=== PATIENT | male | born 1955 | race Two or more races ===

== ENCOUNTER 2023-11-04 18:20 | Inpatient (IN) | payer MEDICAID, OTHER ==
[~2023-11-04] VITALS: Ht 167.6 cm; Wt 61.4 kg
[2023-11-04] MEDS: cloNIDine HCL 0.1 MG TAB PO ONE (18:41)
[2023-11-04 19:32] LABS: Basophils # (auto) 0.1 10 ^3/uL (0-0.2); Basophils % (auto) 0.8 % (0.0-2.0); Eosinophils # (auto) 0.3 10 ^3/uL (0-0.8); Hemoglobin 10.2 g/dL (13.5-17.5); Lymphocytes # (auto) 1.4 10 ^3/uL (0.4-5.4); Mean Corpuscular Volume 81.1 fL (80.0-100.0)
[2023-11-04 19:34] LABS: Alanine Aminotransferase 13 U/L (7-40); Albumin 3.9 g/dL (3.2-4.8); Alkaline Phosphatase 88 U/L (46-116); Anion Gap 6 (5-15); Aspartate Aminotransferase 15 U/L (13-40); BUN/Creatinine Ratio 14.4 (10.0-20.0); Blood Urea Nitrogen 37 mg/dL (9-23); Calcium 8.7 mg/dL (8.5-10.1); Carbon Dioxide 22 mmol/L (20-30); Chloride 108 mmol/L (98-107); Eosinophils % (auto) 2.9 % (0.0-7.0); Glucose 308 mg/dL (74-106); Lymphocytes % (auto) 15.2 % (10.0-50.0); Mean Corpuscular Hemoglobin 26.6 pg (28.0-32.0); Mean Corpuscular Hgb Conc. 32.8 g/dL (32.0-36.0); Monocytes # (auto) 0.9 10 ^3/uL (0-1.3); Monocytes % (auto) 9.3 % (0.0-12.0); Neutrophils # (auto) 6.6 10 ^3/uL (1.6-8.6); Neutrophils % (auto) 71.8 % (37.0-80.0); Potassium 5.3 mmol/L (3.5-5.1); Red Blood Cells 3.82 10^6/uL (4.5-5.90); Red Cell Distribution Width 17.1 % (11.8-14.3); Sodium 136 mmol/L (136-145); White Blood Cell 9.1 10^3/uL (4.4-10.8)
[2023-11-04 19:35] LABS: Bilirubin, Total 0.2 mg/dL (0.2-1.0); Total Protein 7.1 g/dL (5.7-8.2)
[2023-11-04 19:39] LABS: Lactic Acid w/Reflex 2.3 mmol/L (0.4-2.0)
[2023-11-04 23:40] VITALS: PULSE 61; RESP 14; O2SAT 99
[2023-11-05] MEDS: hydrALAZINE HCL 20 MG/ML VL IV ONE (00:01)
[2023-11-05] MEDS ORDERED: ONDANSETRON HCL 4 MG/2 ML VIAL IV PRN (02:15)
[2023-11-05] MEDS ORDERED: DEXTROSE (50%) 50ML SYRG IV PRN (02:15)
[2023-11-05] MEDS ORDERED: NITROGLYCERIN 0.4 MG SL TAB SL PRN (02:15)
[2023-11-05] MEDS ORDERED: MORPHINE SULFATE INJ 2 MG/ml SYRG IV PRN (02:15)
[2023-11-05] MEDS ORDERED: HYDROcodone-ACET 5/325MG TAB PO PRN (02:15)
[2023-11-05] MEDS ORDERED: ACETAMINOPHEN 325 MG TAB PO PRN (02:15)
[2023-11-05 03:04] LABS: Triglycerides 97 mg/dL (< 150)
[2023-11-05 03:05] LABS: LDL Cholesterol 115 mg/dL (< 100)
[2023-11-05 03:06] LABS: Cholesterol 173 mg/dL (< 200); HDL Cholesterol 36 mg/dL (40-59)
[2023-11-05 05:08] LABS: Basophils # (auto) 0.1 10 ^3/uL (0-0.2); Eosinophils # (auto) 0.2 10 ^3/uL (0-0.8)
[2023-11-05 05:10] LABS: Basophils % (auto) 0.7 % (0.0-2.0); Eosinophils % (auto) 1.9 % (0.0-7.0); Hematocrit 28.2 % (41.0-53.0); Hemoglobin 9.5 g/dL (13.5-17.5); Lymphocytes # (auto) 1.8 10 ^3/uL (0.4-5.4); Lymphocytes % (auto) 18.2 % (10.0-50.0); Mean Corpuscular Hemoglobin 26.6 pg (28.0-32.0); Mean Corpuscular Hgb Conc. 33.6 g/dL (32.0-36.0); Mean Corpuscular Volume 79.3 fL (80.0-100.0); Monocytes # (auto) 0.7 10 ^3/uL (0-1.3); Monocytes % (auto) 7.4 % (0.0-12.0); Neutrophils # (auto) 7.1 10 ^3/uL (1.6-8.6); Neutrophils % (auto) 71.8 % (37.0-80.0); Red Blood Cells 3.56 10^6/uL (4.5-5.90); Red Cell Distribution Width 17.3 % (11.8-14.3); White Blood Cell 9.9 10^3/uL (4.4-10.8)
[2023-11-05 05:16] LABS: Anion Gap 8 (5-15); Carbon Dioxide 20 mmol/L (20-30); Chloride 110 mmol/L (98-107); Potassium 4.9 mmol/L (3.5-5.1); Sodium 138 mmol/L (136-145)
[2023-11-05 05:17] LABS: Calcium 8.6 mg/dL (8.7-10.4)
[2023-11-05] MEDS: hydrALAZINE HCL 20 MG/ML VL IV PRN (05:19)
[2023-11-05 05:22] LABS: BUN/Creatinine Ratio 16.3 (10.0-20.0); Blood Urea Nitrogen 40 mg/dL (9-23); Glucose 137 mg/dL (74-106)
[2023-11-05] MEDS: SOD CHL 0.45% 1,000 ML IV ONE (05:51)
[2023-11-05] MEDS: ACCU-CHEK COMFORT CURVE STRIP VI SCH (06:50)
[2023-11-05] MEDS: InsuLIN REG 1unit/0.01ml Soln (100units/ml) SC SCH (06:56)
[2023-11-05 08:17] VITALS: PULSE 72; RESP 16; O2SAT 97
[2023-11-05] MEDS: ASPirin 81 mg TAB PO SCH (10:16)
[2023-11-05] MEDS: ATORVASTATIN 20 MG TAB PO SCH (10:16)
[2023-11-05] MEDS: HEPARIN SODIUM (PORCINE) 5000 UNITS/ML 1ML VIAL SC SCH (10:17)
[2023-11-05] MEDS: METOPROLOL TARTRATE 25 MG TAB PO SCH (10:18)
[2023-11-05 13:55] LABS: Urine Bacteria None Seen /hpf (None Seen)
[2023-11-05 14:22] LABS: Urine Blood Negative /uL (Negative); Urine Clarity Clear (Clear); Urine Color Colorless (Yellow); Urine Protein, UAD 2+ (Negative); Urine Urobilinogen Normal (Negative); Urine WBC 1 /hpf (0 - 3)
[2023-11-05 14:24] LABS: Amphetamine Screen, Urine Neg (NEGATIVE)
[2023-11-05 14:25] LABS: Barbiturate Scree,Urine Neg (NEGATIVE); Benzodiazephine Screen, Urine Neg (NEGATIVE); Cocaine Screen, Urine Neg (NEGATIVE); Opiate Scree,Urine Neg (NEGATIVE)
[2023-11-05 14:26] LABS: Cannabinoid Screen, Urine Neg (NEGATIVE); Phencyclidine Screen, Urine Neg (NEGATIVE)
[2023-11-05] MEDS: amLODIPine BESYLATE 5 MG TAB PO ONE (16:13)
[2023-11-05 19:27] VITALS: PULSE 79; RESP 16; O2SAT 97
[2023-11-06 05:08] LABS: Chloride 111 mmol/L (98-107); Eosinophils # (auto) 0.3 10 ^3/uL (0-0.8); Eosinophils % (auto) 2.3 % (0.0-7.0); Hemoglobin 10.2 g/dL (13.5-17.5); Lymphocytes # (auto) 1.9 10 ^3/uL (0.4-5.4); Mean Corpuscular Volume 82.9 fL (80.0-100.0); Neutrophils # (auto) 8.7 10 ^3/uL (1.6-8.6); Potassium 5.4 mmol/L (3.5-5.1); Sodium 138 mmol/L (136-145)
[2023-11-06 05:09] LABS: Anion Gap 7 (5-15); Basophils # (auto) 0.1 10 ^3/uL (0-0.2); Basophils % (auto) 1.2 % (0.0-2.0); Calcium 8.9 mg/dL (8.5-10.1); Carbon Dioxide 20 mmol/L (20-30); Lymphocytes % (auto) 16.2 % (10.0-50.0); Mean Corpuscular Hemoglobin 26.4 pg (28.0-32.0); Mean Corpuscular Hgb Conc. 31.9 g/dL (32.0-36.0); Monocytes # (auto) 0.8 10 ^3/uL (0-1.3); Neutrophils % (auto) 73.3 % (37.0-80.0); Red Blood Cells 3.86 10^6/uL (4.5-5.90); Red Cell Distribution Width 18.2 % (11.8-14.3); White Blood Cell 11.9 10^3/uL (4.4-10.8)
[2023-11-06 05:14] LABS: BUN/Creatinine Ratio 15.1 (10.0-20.0); Blood Urea Nitrogen 39 mg/dL (9-23); Glucose 105 mg/dL (74-106); Magnesium 2.2 mg/dL (1.6-2.6)
[2023-11-06] MEDS: SOD CHL 0.45% 1,000 ML IV SCH (06:11)
[2023-11-06] MEDS: SODIUM ZIRCONIUM CYCL 10 GM PAK PO ONE (06:11)
[2023-11-06 06:21] LABS: Urine Bacteria None Seen /hpf (None Seen)
[2023-11-06 06:37] LABS: Protein, Urine 240.6 mg/dL (0.0-11.9)
[2023-11-06 06:38] LABS: Urine Blood Negative /uL (Negative); Urine Clarity Clear (Clear); Urine Color Colorless (Yellow); Urine Protein, UAD 2+ (Negative); Urine Urobilinogen Normal (Negative); Urine WBC 2 /hpf (0 - 3)
[2023-11-06 06:39] LABS: Creatinine, Urine 44.95 mg/dL (30.0-125.0)
[2023-11-06 07:46] VITALS: PULSE 70; RESP 16; O2SAT 96
[2023-11-06] MEDS: amLODIPine BESYLATE 5 MG TAB PO SCH (10:15)
[2023-11-06] MEDS: cloNIDine HCL 0.1 MG TAB PO PRN (11:54)
[2023-11-06] MEDS ORDERED: EMPA1TAB3 PO (16:22)
[2023-11-06] MEDS ORDERED: GLYB5TAB8 PO (16:22)
[2023-11-06] MEDS ORDERED: ENAL1TAB48 PO (16:22)
[2023-11-06] MEDS ORDERED: METF-371 PO (16:22)
[2023-11-06] MEDS ORDERED: HYDR12.55 PO (16:22)
[2023-11-06 23:32] VITALS: BP 182/76; PULSE 66; RESP 18; TEMP 98.3; O2SAT 98
[2023-11-06 23:33] VITALS: BP 201/77; PULSE 63; RESP 18; TEMP 97.9; O2SAT 99
[2023-11-06 23:40] VITALS: PULSE 63; RESP 18; O2SAT 99
[2023-11-07] VITALS (11 sets, daily range): BP systolic 114–186; BP diastolic 57–78; PULSE 62–90; RESP 16–18; TEMP 97.4–98.3; O2SAT 95–99
[2023-11-07 06:25] LABS: Basophils # (auto) 0.1 10 ^3/uL (0-0.2); Basophils % (auto) 0.8 % (0.0-2.0); Eosinophils # (auto) 0.3 10 ^3/uL (0-0.8); Hemoglobin 9.9 g/dL (13.5-17.5); Lymphocytes # (auto) 1.7 10 ^3/uL (0.4-5.4); White Blood Cell 9.4 10^3/uL (4.4-10.8)
[2023-11-07 06:28] LABS: Hematocrit 30.3 % (41.0-53.0); Lymphocytes % (auto) 18.5 % (10.0-50.0); Mean Corpuscular Hemoglobin 26.3 pg (28.0-32.0); Mean Corpuscular Hgb Conc. 32.7 g/dL (32.0-36.0); Mean Corpuscular Volume 80.3 fL (80.0-100.0); Monocytes # (auto) 0.7 10 ^3/uL (0-1.3); Monocytes % (auto) 7.6 % (0.0-12.0); Neutrophils # (auto) 6.6 10 ^3/uL (1.6-8.6); Neutrophils % (auto) 70.1 % (37.0-80.0); Nucleated Red Blood Cells % 0.1 %; Red Blood Cells 3.77 10^6/uL (4.5-5.90); Red Cell Distribution Width 17.5 % (11.8-14.3)
[2023-11-07 06:35] LABS: Calcium 8.8 mg/dL (8.7-10.4); Chloride 109 mmol/L (98-107); Sodium 138 mmol/L (136-145)
[2023-11-07 06:36] LABS: Anion Gap 8 (5-15); Carbon Dioxide 21 mmol/L (20-30)
[2023-11-07 06:41] LABS: Glucose 142 mg/dL (74-106)
[2023-11-07 06:42] LABS: BUN/Creatinine Ratio 15.1 (10.0-20.0); Blood Urea Nitrogen 41 mg/dL (9-23)
[2023-11-07] MEDS: SEVELAMER 800 MG TAB PO SCH (18:00)
[2023-11-08 01:00] VITALS: BP 138/60; PULSE 75; RESP 18; TEMP 98; O2SAT 98
[2023-11-08 05:00] VITALS: BP 151/67; PULSE 68; RESP 18; TEMP 97.8; O2SAT 97
[2023-11-08 07:03] LABS: Basophils # (auto) 0.1 10 ^3/uL (0-0.2); Basophils % (auto) 0.7 % (0.0-2.0); Eosinophils # (auto) 0.1 10 ^3/uL (0-0.8); Eosinophils % (auto) 0.6 % (0.0-7.0); Hematocrit 29.9 % (41.0-53.0); Hemoglobin 9.5 g/dL (13.5-17.5); Lymphocytes # (auto) 1.5 10 ^3/uL (0.4-5.4); Lymphocytes % (auto) 12.1 % (10.0-50.0); Mean Corpuscular Hemoglobin 25.6 pg (28.0-32.0); Mean Corpuscular Hgb Conc. 31.8 g/dL (32.0-36.0); Mean Corpuscular Volume 80.3 fL (80.0-100.0); Monocytes # (auto) 0.8 10 ^3/uL (0-1.3); Monocytes % (auto) 6.7 % (0.0-12.0); Neutrophils % (auto) 79.9 % (37.0-80.0); Red Blood Cells 3.72 10^6/uL (4.5-5.90); Red Cell Distribution Width 17.7 % (11.8-14.3); White Blood Cell 12.6 10^3/uL (4.4-10.8)
[2023-11-08 07:22] LABS: Anion Gap 6 (5-15); Carbon Dioxide 23 mmol/L (20-30); Chloride 110 mmol/L (98-107); Potassium 4.9 mmol/L (3.5-5.1); Sodium 139 mmol/L (136-145)
[2023-11-08 07:23] LABS: Calcium 8.7 mg/dL (8.5-10.1)
[2023-11-08 07:28] LABS: BUN/Creatinine Ratio 15.6 (10.0-20.0); Blood Urea Nitrogen 43 mg/dL (9-23); Glucose 94 mg/dL (74-106)
[2023-11-08 08:00] VITALS: PULSE 72
[2023-11-08 09:00] VITALS: BP 191/80; PULSE 69; RESP 17; TEMP 97.7; O2SAT 97
[2023-11-08 13:00] VITALS: BP 194/85; PULSE 77; RESP 17; TEMP 97.6; O2SAT 98
[2023-11-08] MEDS ORDERED: hydrALAZINE HCL 25 MG TAB PO SCH (14:00)
[2023-11-08] MEDS ORDERED: ASPI-325 PO (15:13)
[2023-11-08] MEDS ORDERED: SEVE800T7 PO (15:13)
[2023-11-08] MEDS ORDERED: ATOR20TA50 PO (15:13)
[2023-11-08] MEDS ORDERED: AML5T PO (15:13)
[2023-11-08] MEDS ORDERED: HYDR25TA87 PO (15:13)
[2023-11-08] MEDS ORDERED: MET25T PO (15:13)
[2023-11-08] MEDS ORDERED: CLON0.1T PO (15:18)
[2023-11-08] MEDS: hydrALAZINE HCL 25 MG TAB PO SCH (15:25)
[2023-11-08 17:21] VITALS: BP 150/71; PULSE 77
== END 2023-11-08 17:21 | disposition home or self-care (01) | DRG 281 ==
LOC: ER 18:20 → TELE 11-05 02:32 → TELE-EAST 11-06 23:05
PROVIDERS: ADMIT Nurse Practitioner Family; ATTEND Nurse Practitioner Family
DX: I16.0 Hypertensive urgency (principal); N17.9 Acute kidney failure, unspecified; I21.A1 Myocardial infarction type 2; N25.81 Secondary hyperparathyroidism of renal origin; N18.4 Chronic kidney disease, stage 4 (severe); E87.5 Hyperkalemia; E11.65 Type 2 diabetes mellitus with hyperglycemia; D63.1 Anemia in chronic kidney disease; E83.39 Other disorders of phosphorus metabolism; I13.10 Hypertensive heart and chronic kidney disease without heart failure, with stage 1 through stage 4 chronic kidney disease, or unspecified chronic kidney disease; E11.22 Type 2 diabetes mellitus with diabetic chronic kidney disease; E11.21 Type 2 diabetes mellitus with diabetic nephropathy
CPT/HCPCS: 36415; 70450; 71045; 76775; 78582; 80048; 80053; 80061; 80307; 81001; 82306; 82570; 82962; 83036; 83605; 83735; 83880; 83970; 84100; 84156; 84300; 84484; 85025; 85379; 87040; 93005; 93306; 93975; G0378; J1815

== ENCOUNTER 2024-10-03 08:08 | Emergency (ER) | payer OTHER ==
[~2024-10-03] VITALS: Ht 165.1 cm; Wt 61.3 kg
[~2024-10-03 08:08] MED LIST: AML5T PO; ASPI-325 PO; ATOR20TA50 PO; CLON0.1T PO; EMPA1TAB3 PO; GLYB5TAB8 PO; HYDR25TA87 PO; MET25T PO; METF-371 PO; SEVE800T7 PO
--- NOTE | 2024-10-03 08:34 | ED.PDOC ---
History of Present Illness HPI Comments 69 y/o M, presents to the ED for CC of abnormal labs. Patient states, that he received a call from his dialysis nurse to follow up with the ED for a further evaluation following dialysis treatment yesterday (10/02/24). Patient reports, that he receives dialysis treatment on M,W,F. No other symptoms of modifying factors present at this time. Chief Complaint: Abnormal LAB's Time Seen by MD: 08:25 Reviewed Notes: Nurses Notes, Medications, Allergies Allergies: Coded Allergies: NO KNOWN ALLERGIES (Unverified , 11/05/23) Home Meds Active Scripts Clonidine Hydrochloride (Clonidine Hcl) 0.1 Mg Tab, 0.1 MG PO Q8HPRN PRN for 30 Days, #90 TAB Prov:SUKUMAR PEDRO MD 11/08/23 Amlodipine Besylate (NORVASC TABLET) 5 Mg Tb, 10 MG PO DAILY, #60 TAB Prov:SUKUMAR PEDRO MD 11/08/23 Sevelamer Hydrochloride (Renagel) 800 Mg Tab, 800 MG PO TIDWM, #90 TAB Prov:SUKUMAR PEDRO MD 11/08/23 Metoprolol Tartrate (Lopressor) 25 Mg Tb, 12.5 MG PO BID for 30 Days, #30 TAB Prov:SUKUMAR PEDRO MD 11/08/23 Hydralazine HCl (Hydralazine HCl) 25 Mg Tab, 50 MG PO Q8HR, #90 TAB Prov:SUKUMAR PEDRO MD 11/08/23 Atorvastatin Calcium (ATORVASTATIN CALCIUM) 20 Mg Tab, 20 MG PO DAILY, #60 TAB Prov:SUKUMAR PEDRO MD 11/08/23 Aspirin (Aspirin Low Dose) 81 Mg Tab, 81 MG PO DAILY for 60 Days, #60 TAB Prov:SUKUMAR PEDRO MD 11/08/23 Reported Medications Metformin Hydrochloride (Metformin Hcl) 850 Mg Tab, 850 MG PO TID, TAB 11/06/23 Glyburide (Glyburide) 5 Mg Tab, 2 TAB PO DAILY, MG 11/06/23 Empagliflozin (Jardiance) 25 Mg Tab, 25 MG PO DAILY, TAB 11/06/23 Information Source: Patient Mode of Arrival: Ambulatory Severity: Moderate Timing: Minutes Duration: Since onset Prehospital treatment: None Past Medical History PAST MEDICAL HISTORY: Denies Surgical History: Denies all surgeries Family History Family History: Unknown Social History Smoker: Non-Smoker Alcohol: Denies ETOH Use Drugs: Denies Drug Use Lives In: Home Constitutional: denies: chills, diaphoresis, fatigue, fever, malaise, sweats, weakness, others EENTM: denies: blurred vision, double vision, ear bleeding, ear discharge, ear drainage, ear pain, ear ringing, eye pain, eye redness, hearing loss, mouth pain, mouth swelling, nasal discharge, nose bleeding, nose congestion, nose pain, photophobia, tearing, throat pain, throat swelling, voice changes, others Respiratory: denies: cough, hemoptysis, orthopnea, SOB at rest, shortness of breath, SOB with excertion, stridor, wheezing, others Cardiovascular: denies: chest pain, dizzy spells, diaphoresis, Dyspnea on exertion, edema, irregular heart beat, left arm pain, lightheadedness, palpitations, PND, syncope, others Gastrointestinal: denies: abdomen distended, abdominal pain, blood streaked bowels, constipated, diarrhea, dysphagia, difficulty swallowing, hematemesis, melena, nausea, poor appetite, poor fluid intake, rectal bleeding, rectal pain, vomiting, others Genitourinary: denies: burning, dysuria, flank pain, frequency, hematuria, incontinence, penile discharge, penile sore, pain, testicle pain, testicle swelling, urgency, others Neurological: denies: dizziness, fainting, headache, left sided numbness, left sided weakness, numbness, paresthesia, pre-existing deficit, right sided numbness, right sided weakness, seizure, speech problems, tingling, tremors, weakness, others Musculoskeletal: denies: back pain, gout, joint pain, joint swelling, muscle pain, muscle stiffness, neck pain, others Integumetry: denies: bruises, change in color, change in hair/nails, dryness, laceration, lesions, lumps, rash, wounds, others Allergic/Immunocompromised: denies: Difficulty Healing, Frequent Infections, Hives, Itching, others Hematologic/Lymphatic: denies: anemia, blood clots, easy bleeding, easy bruising, swollen glands, others Endocrine: denies: excessive hunger, excessive sweating, excessive thirst, excessive urination, flushing, intolerance to cold, intolerance to heat, unexplained weight gain, unexplained weight loss, others Psychiatric: denies: anxiety, bipolar disorder, depression, hopeless, panic disorder, schizophrenia, sleepless, suicidal, others All Other Systems: Reviewed and Negative Physical Exam General Appearance: No Apparent Distress, Normal HEENT: Normal ENT Inspection, Pharynx Normal, TMs Normal Neck: Full Range of Motion, Non-Tender, Normal, Normal Inspection Respiratory: Chest Non-Tender, Lungs Clear, No Accessory Muscle Use, No R espiratory Distress, Normal Breath Sounds Cardiovascular: No Edema, No Murmur, No Gallop, Normal Peripheral Pulses, Regular Rate/Rhythm Breast Exam: Deferred Gastrointestinal: No Organomegaly, Non Tender, No Pulsatile Mass, Normal Bowel Sounds, Soft Genitalia: Deferred Pelvic: Deferred Rectal: Deferred Extremities: No calf tenderness, Normal capillary refill, Normal inspection, Normal range of motion, Non-tender, No pedal edema Musculoskeletal : Apperance: Normal Neurologic: Alert, kelp or seagrass gatherer II-XII nml as Tested, No Motor Deficits, Normal Affect, Normal Mood, No Sensory Deficits Cerebellar Function: Normal Reflexes: Normal Skin: Dry, Normal Color, Warm Lymphatic: No Adenopathy Was a procedure done? Was a procedure done?: No Differential Dx Considerations may include: ELECTROLYTE IMBALANCE X-Ray, Labs, Meds, VS Vital Signs Date Time Temp Pulse Resp B/P (MAP) Pulse Ox O2 Delivery O2 Flow Rate FiO2 10/03/24 15:00 98.2 67 12 157/63 (94) 94 98.2 10/03/24 13:00 59 15 133/78 (96) 91 10/03/24 12:00 60 10/03/24 11:00 62 16 146/65 (92) 92 10/03/24 09:00 64 10 94 Nasal Cannula* 3 32 10/03/24 08:54 98.7 62 13 147/62 (90) 91 98.7 10/03/24 08:22 65 10/03/24 08:15 98.7 66 18 133/50 (77) 96 98.7 Lab Test 10/03/24 13:12 10/03/24 09:28 10/03/24 08:40 10/03/24 08:18 Range/Units POC Glucose 243 H 513 *H 433 *H 70-106 mg/dl White Blood Count 9.0 4.4-10.8 10^3/uL Red Blood Count 4.03 L 4.5-5.90 10^6/uL Hemoglobin 10.7 L 13.5-17.5 g/dL Hematocrit 32.7 L 41.0-53.0 % Mean Corpuscular Volume 81.2 80.0-100.0 fL Mean Corpuscular Hemoglobin 26.6 L 28.0-32.0 pg Mean Corpuscular Hemoglobin Concent 32.7 32.0-36.0 g/dL Red Cell Distribution Width 15.7 H 11.8-14.3 % Platelet Count 284 140-450 10^3/uL Mean Platelet Volume 8.6 6.9-10.8 fL Neutrophils (%) (Auto) 76.0 37.0-80.0 % Lymphocytes (%) (Auto) 11.2 10.0-50.0 % Monocytes (%) (Auto) 8.0 0.0-12.0 % Eosinophils (%) (Auto) 2.7 0.0-7.0 % Basophils (%) (Auto) 2.1 H 0.0-2.0 % Neutrophils # (Auto) 6.8 1.6-8.6 10 ^3/uL Lymphocytes # (Auto) 1.0 0.4-5.4 10 ^3/uL Monocytes # (Auto) 0.7 0-1.3 10 ^3/uL Eosinophils # (Auto) 0.2 0-0.8 10 ^3/uL Basophils # (Auto) 0.2 0-0.2 10 ^3/uL Nucleated Red Blood Cells 0.0 % Sodium Level 134 L 136-145 mmol/L Potassium Level 4.2 3.5-5.1 mmol/L Chloride Level 99 98-107 mmol/L Carbon Dioxide Level 29 20-31 mmol/L Anion Gap 6 5-15 Blood Urea Nitrogen 30 H 9-23 mg/dL Creatinine 3.47 H 0.700-1.30 mg/dL Glomerular Filtration Rate Calc 19 >90 mL/min BUN/Creatinine Ratio 8.6 L 10.0-20.0 Serum Glucose 491 *H 74-106 mg/dL Calcium Level 8.9 8.7-10.4 mg/dL Phosphorus Level 3.2 2.4-5.1 mg/dL Magnesium Level 1.9 1.6-2.6 mg/dL Test 10/03/24 08:16 Range/Units POC Glucose 428 *H 70-106 mg/dl Current Medications Medications (Trade) Dose Ordered Sig/David Route Start Time Stop Time Status Last Admin Insulin Human Regular (InsuLIN R) 10 units ONCE ONCE IV 10/03/24 09:30 10/03/24 09:31 DC 10/03/24 09:32 Time of 1ST Reevaluation: 09:55 Reevaluation 1ST: Unchanged Patient Education/Counseling: Diagnosis, Treatment Family Education/Counseling: No Family Present Departure 1 Departure Time of Disposition: 16:44 (Patient presented with concern for abnormal labs. Patient's labs appear benign however patient is hypoxic on room air to the high 80s. We will admit patient for further workup for hypoxia.) Impression: Primary Impression: Acute respiratory failure with hypoxia Disposition: ADMITTED INPATIENT Admit to: Med Surg Condition: Serious Critical Care Note Critical Care Time?: No Stability Stability form required: No Heart Score Heart Score: Heart Score Response (Comments) Value History N/A 0 EKG N/A 0 Age N/A 0 Risk Factors N/A 0 Troponin N/A 0 Total 0 I personally scribed for YAIR FALLON MD ([email or web address]) on 10/03/24 at 08:33. Electronically submitted by Mitra Rayo [email or web address]). YAIR FALLON MD October 03, 2024 08:33
--- NOTE | 2024-10-03 08:45 | ECG ---
[facility] Test Date: 2024-10-03 Test Time: 08:22:26 Pat Name: GABY BACON Department: ER Room: Gender: M Ent Consultant: ALLAN : 1955 Requested By: YAIR FALLON Order Number: [id number] Reading MD: Taran Villegas Measurements Intervals [place] Rate: 65 P: 268 NC: 132 QRS: 48 QRSD: 90 T: 263 QT: 458 QTc: 477 Interpretive Statements Ectopic atrial rhythm LVH with secondary repolarization abnormality ST depr, consider ischemia, inferior leads Borderline prolonged QT interval Electronically Signed On 10-03-2024 21:08:45 PDT by Taran Villegas Please click the below link to view image of tracing.
[2024-10-03 08:48] LABS: Basophils # (auto) 0.2 10 ^3/uL (0-0.2); Basophils % (auto) 2.1 % (0.0-2.0); Eosinophils # (auto) 0.2 10 ^3/uL (0-0.8); Eosinophils % (auto) 2.7 % (0.0-7.0); Hematocrit 32.7 % (41.0-53.0); Hemoglobin 10.7 g/dL (13.5-17.5); Lymphocytes % (auto) 11.2 % (10.0-50.0); Mean Corpuscular Hemoglobin 26.6 pg (28.0-32.0); Mean Corpuscular Hgb Conc. 32.7 g/dL (32.0-36.0); Mean Corpuscular Volume 81.2 fL (80.0-100.0); Monocytes # (auto) 0.7 10 ^3/uL (0-1.3); Neutrophils # (auto) 6.8 10 ^3/uL (1.6-8.6); Platelet Count (auto) 284 10^3/uL (140-450); Red Blood Cells 4.03 10^6/uL (4.5-5.90); Red Cell Distribution Width 15.7 % (11.8-14.3)
[2024-10-03 08:58] LABS: Chloride 99 mmol/L (98-107); Potassium 4.2 mmol/L (3.5-5.1)
[2024-10-03 08:59] LABS: Anion Gap 6 (5-15); Carbon Dioxide 29 mmol/L (20-31)
[2024-10-03 09:00] VITALS: PULSE 64; RESP 10; O2SAT 94
[2024-10-03 09:00] LABS: Calcium 8.9 mg/dL (8.7-10.4)
[2024-10-03 09:04] LABS: Sodium 134 mmol/L (136-145)
[2024-10-03 09:05] LABS: Blood Urea Nitrogen 30 mg/dL (9-23); Magnesium 1.9 mg/dL (1.6-2.6)
[2024-10-03 09:06] LABS: Phosphorus 3.2 mg/dL (2.4-5.1)
[2024-10-03 09:15] LABS: BUN/Creatinine Ratio 8.6 (10.0-20.0); Glucose 491 mg/dL (74-106)
[2024-10-03] MEDS: InsuLIN REG 1unit/0.01ml Soln (100units/ml) IV ONE (09:32)
--- NOTE | 2024-10-03 10:51 | DVH ---
EXAM: XY CHEST PORTABLE Indication: sob Technique: Single frontal view of the chest was obtained Comparison: XY CHEST PORTABLE on DOS: 11/05/23 FINDINGS: Lines and Tubes: Right tunneled dialysis catheter tip projects over the right atrium. Lungs: No focal consolidation. There is mild pulmonary vascular congestion Pleura: Trace right pleural effusion No pneumothorax. Cardiomediastinal contours: Cardiomegaly. Bones: No acute osseous abnormality. IMPRESSION: Cardiomegaly with mild pulmonary vascular congestion. Trace right pleural effusion.
--- NOTE | 2024-10-03 13:00 | DVHINCON2 ---
Date Seen: October 03, 2024 Family History: Hypertension G8 MOTHER G8 FATHER Allergies: Coded Allergies: NO KNOWN ALLERGIES (Unverified , 11/05/23) Home Meds Active Scripts Clonidine Hydrochloride (Clonidine Hcl) 0.1 Mg Tab, 0.1 MG PO Q8HPRN PRN for 30 Days, #90 TAB Prov:SUKUMAR PEDRO MD 11/08/23 Amlodipine Besylate (NORVASC TABLET) 5 Mg Tb, 10 MG PO DAILY, #60 TAB Prov:SUKUMAR PEDRO MD 11/08/23 Sevelamer Hydrochloride (Renagel) 800 Mg Tab, 800 MG PO TIDWM, #90 TAB Prov:SUKUMAR PEDRO MD 11/08/23 Metoprolol Tartrate (Lopressor) 25 Mg Tb, 12.5 MG PO BID for 30 Days, #30 TAB Prov:SUKUMAR PEDRO MD 11/08/23 Hydralazine HCl (Hydralazine HCl) 25 Mg Tab, 50 MG PO Q8HR, #90 TAB Prov:SUKUMAR PEDRO MD 11/08/23 Atorvastatin Calcium (ATORVASTATIN CALCIUM) 20 Mg Tab, 20 MG PO DAILY, #60 TAB Prov:SUKUMAR PEDRO MD 11/08/23 Aspirin (Aspirin Low Dose) 81 Mg Tab, 81 MG PO DAILY for 60 Days, #60 TAB Prov:SUKUMAR PEDRO MD 11/08/23 Reported Medications Metformin Hydrochloride (Metformin Hcl) 850 Mg Tab, 850 MG PO TID, TAB 11/06/23 Glyburide (Glyburide) 5 Mg Tab, 2 TAB PO DAILY, MG 11/06/23 Empagliflozin (Jardiance) 25 Mg Tab, 25 MG PO DAILY, TAB 11/06/23 Vital Signs Vital Signs Date Time Temp Pulse Resp B/P (MAP) Pulse Ox O2 Delivery O2 Flow Rate FiO2 10/03/24 11:00 62 16 146/65 (92) 92 10/03/24 09:00 Nasal Cannula* 3 32 10/03/24 08:54 98.7 98.7 Labs/Diagnostic Data Labs Test 10/03/24 09:28 10/03/24 08:40 Range/Units POC Glucose 513 *H 70-106 mg/dl White Blood Count 9.0 4.4-10.8 10^3/uL Red Blood Count 4.03 L 4.5-5.90 10^6/uL Hemoglobin 10.7 L 13.5-17.5 g/dL Hematocrit 32.7 L 41.0-53.0 % Mean Corpuscular Volume 81.2 80.0-100.0 fL Mean Corpuscular Hemoglobin 26.6 L 28.0-32.0 pg Mean Corpuscular Hemoglobin Concent 32.7 32.0-36.0 g/dL Red Cell Distribution Width 15.7 H 11.8-14.3 % Platelet Count 284 140-450 10^3/uL Mean Platelet Volume 8.6 6.9-10.8 fL Neutrophils (%) (Auto) 76.0 37.0-80.0 % Lymphocytes (%) (Auto) 11.2 10.0-50.0 % Monocytes (%) (Auto) 8.0 0.0-12.0 % Eosinophils (%) (Auto) 2.7 0.0-7.0 % Basophils (%) (Auto) 2.1 H 0.0-2.0 % Neutrophils # (Auto) 6.8 1.6-8.6 10 ^3/uL Lymphocytes # (Auto) 1.0 0.4-5.4 10 ^3/uL Monocytes # (Auto) 0.7 0-1.3 10 ^3/uL Eosinophils # (Auto) 0.2 0-0.8 10 ^3/uL Basophils # (Auto) 0.2 0-0.2 10 ^3/uL Nucleated Red Blood Cells 0.0 % Sodium Level 134 L 136-145 mmol/L Potassium Level 4.2 3.5-5.1 mmol/L Chloride Level 99 98-107 mmol/L Carbon Dioxide Level 29 20-31 mmol/L Anion Gap 6 5-15 Blood Urea Nitrogen 30 H 9-23 mg/dL Creatinine 3.47 H 0.700-1.30 mg/dL Glomerular Filtration Rate Calc 19 >90 mL/min BUN/Creatinine Ratio 8.6 L 10.0-20.0 Serum Glucose 491 *H 74-106 mg/dL Calcium Level 8.9 8.7-10.4 mg/dL Phosphorus Level 3.2 2.4-5.1 mg/dL Magnesium Level 1.9 1.6-2.6 mg/dL SUKUMAR PEDRO MD October 03, 2024 13:00
[2024-10-03 19:00] VITALS: PULSE 72; RESP 18; O2SAT 95
[2024-10-04] MEDS: cloNIDine HCL 0.1 MG TAB PO ONE (01:18)
[2024-10-04] MEDS: LOSARTAN POTASSIUM 50 MG TAB PO ONE (05:20)
[2024-10-04] MEDS: NIFEdipine 10 MG CAP PO ONE (05:46)
[2024-10-04] MEDS: InsuLIN REG 1unit/0.01ml Soln (100units/ml) SC ONE (06:54)
[2024-10-04 07:40] VITALS: PULSE 62; RESP 12; TEMP 98; O2SAT 93
[2024-10-04 11:00] VITALS: BP 133/65; PULSE 60; RESP 12; O2SAT 93
[2024-10-05] MEDS ORDERED: LOSA-534 PO (06:59)
[2024-10-05] MEDS ORDERED: NIFE10CA52 PO (06:59)
== END 2024-10-04 11:32 | disposition home or self-care (01) ==
LOC: ER 08:08
DX: J96.01 Acute respiratory failure with hypoxia (principal); Z79.82 Long term (current) use of aspirin; Z79.84 Long term (current) use of oral hypoglycemic drugs; Z79.899 Other long term (current) drug therapy
CPT/HCPCS: 36415; 71045; 80048; 82947; 83735; 84100; 85025; 93005; 96374; 99285; J1815; 82962

== ENCOUNTER 2024-10-04 20:56 | Inpatient (IN) | payer OTHER ==
[~2024-10-04] VITALS: Ht 165.1 cm; Wt 62.3 kg
[2024-10-04] MEDS ORDERED: VANCOMYCIN PER PHARMACY 0 MG IV SCH (21:45)
[2024-10-04 22:19] LABS: Basophils # (auto) 0.1 10 ^3/uL (0-0.2); Basophils % (auto) 0.9 % (0.0-2.0); Eosinophils # (auto) 0.2 10 ^3/uL (0-0.8); Eosinophils % (auto) 1.9 % (0.0-7.0); Hematocrit 32.5 % (41.0-53.0); Hemoglobin 10.6 g/dL (13.5-17.5); Lymphocytes # (auto) 1.1 10 ^3/uL (0.4-5.4); Lymphocytes % (auto) 10.8 % (10.0-50.0); Mean Corpuscular Hemoglobin 26.4 pg (28.0-32.0); Mean Corpuscular Hgb Conc. 32.7 g/dL (32.0-36.0); Mean Corpuscular Volume 80.8 fL (80.0-100.0); Monocytes # (auto) 1.2 10 ^3/uL (0-1.3); Monocytes % (auto) 11.4 % (0.0-12.0); Neutrophils # (auto) 7.6 10 ^3/uL (1.6-8.6); Platelet Count (auto) 311 10^3/uL (140-450); Red Blood Cells 4.02 10^6/uL (4.5-5.90); Red Cell Distribution Width 15.7 % (11.8-14.3); White Blood Cell 10.1 10^3/uL (4.4-10.8)
[2024-10-04 22:44] LABS: Albumin 3.9 g/dL (3.2-4.8); Alkaline Phosphatase 93 U/L (46-116); Anion Gap 9 (5-15); Aspartate Aminotransferase 20 U/L (13-40); BUN/Creatinine Ratio 8.3 (10.0-20.0); Carbon Dioxide 29 mmol/L (20-31); Chloride 99 mmol/L (98-107); Potassium 3.5 mmol/L (3.5-5.1); Sodium 137 mmol/L (136-145); Total Protein 6.9 g/dL (5.7-8.2)
[2024-10-04 23:01] LABS: Alanine Aminotransferase < 9 U/L (7-40); Bilirubin, Total < 0.2 mg/dL (0.2-1.0); Blood Urea Nitrogen 24 mg/dL (9-23); Calcium 8.2 mg/dL (8.7-10.4); Glucose 271 mg/dL (74-106); Lipase 73 U/L (12-53)
[2024-10-05] MEDS: SODIUM CHLORIDE 0.9% 1,000 ML IV ONE (00:19)
[2024-10-05] MEDS: cloNIDine HCL 0.1 MG TAB PO ONE (01:03)
--- NOTE | 2024-10-05 01:28 | ED.PDOC ---
History of Present Illness HPI Comments This patient is a pleasant 69-year-old male who arrives to the ED today for evaluation of positive blood culture concerns. Patient suffers from end-stage renal disease and is currently on dialysis. Patient's dialysis center sent him to our location due to concerns of sepsis due to Gram-positive cocci in pairs and clusters noted on blood cultures. Dialysis center of thinks it may be coming from his right-sided chest port. Patient denies any fever nausea or vomiting. Patient was mildly hypertensive on arrival. Chief Complaint: Wound Check Time Seen by MD: 21:04 Primary Care Provider: CLARENCE Reviewed Notes: Nurses Notes Allergies: Coded Allergies: NO KNOWN ALLERGIES (Unverified , 11/05/23) Home Meds Active Scripts Clonidine Hydrochloride (Clonidine Hcl) 0.1 Mg Tab, 0.1 MG PO Q8HPRN PRN for 30 Days, #90 TAB Prov:SUKUMAR PEDRO MD 11/08/23 Amlodipine Besylate (NORVASC TABLET) 5 Mg Tb, 10 MG PO DAILY, #60 TAB Prov:SUKUMAR PEDRO MD 11/08/23 Sevelamer Hydrochloride (Renagel) 800 Mg Tab, 800 MG PO TIDWM, #90 TAB Prov:SUKUMAR PEDRO MD 11/08/23 Metoprolol Tartrate (Lopressor) 25 Mg Tb, 12.5 MG PO BID for 30 Days, #30 TAB Prov:SUKUMAR PEDRO MD 11/08/23 Hydralazine HCl (Hydralazine HCl) 25 Mg Tab, 50 MG PO Q8HR, #90 TAB Prov:SUKUMAR PEDRO MD 11/08/23 Atorvastatin Calcium (ATORVASTATIN CALCIUM) 20 Mg Tab, 20 MG PO DAILY, #60 TAB Prov:SUKUMAR PEDRO MD 11/08/23 Aspirin (Aspirin Low Dose) 81 Mg Tab, 81 MG PO DAILY for 60 Days, #60 TAB Prov:SUKUMAR PEDRO MD 11/08/23 Reported Medications Metformin Hydrochloride (Metformin Hcl) 850 Mg Tab, 850 MG PO TID, TAB 11/06/23 Glyburide (Glyburide) 5 Mg Tab, 2 TAB PO DAILY, MG 11/06/23 Empagliflozin (Jardiance) 25 Mg Tab, 25 MG PO DAILY, TAB 11/06/23 Information Source: Patient Mode of Arrival: Ambulatory Severity: Moderate Timing: Days Duration: Since onset Prehospital treatment: None Past Medical History PAST MEDICAL HISTORY: ESRD, Denies Surgical History: Denies all surgeries Family History Family History: Unknown Social History Smoker: Non-Smoker Alcohol: Denies ETOH Use Drugs: Denies Drug Use Lives In: Home Constitutional: denies: chills, diaphoresis, fatigue, fever, malaise, sweats, weakness, others EENTM: denies: blurred vision, double vision, ear bleeding, ear discharge, ear drainage, ear pain, ear ringing, eye pain, eye redness, hearing loss, mouth pain, mouth swelling, nasal discharge, nose bleeding, nose congestion, nose pain, photophobia, tearing, throat pain, throat swelling, voice changes, others Respiratory: denies: cough, hemoptysis, orthopnea, SOB at rest, shortness of breath, SOB with excertion, stridor, wheezing, others Cardiovascular: denies: chest pain, dizzy spells, diaphoresis, Dyspnea on exertion, edema, irregular heart beat, left arm pain, lightheadedness, palpitations, PND, syncope, others Gastrointestinal: denies: abdomen distended, abdominal pain, blood streaked bowels, constipated, diarrhea, dysphagia, difficulty swallowing, hematemesis, melena, nausea, poor appetite, poor fluid intake, rectal bleeding, rectal pain, vomiting, others Genitourinary: denies: burning, dysuria, flank pain, frequency, hematuria, incontinence, penile discharge, penile sore, pain, testicle pain, testicle swelling, urgency, others Neurological: denies: dizziness, fainting, headache, left sided numbness, left sided weakness, numbness, paresthesia, pre-existing deficit, right sided numbness, right sided weakness, seizure, speech problems, tingling, tremors, weakness, others Musculoskeletal: denies: back pain, gout, joint pain, joint swelling, muscle pain, muscle stiffness, neck pain, others Integumetry: denies: bruises, change in color, change in hair/nails, dryness, laceration, lesions, lumps, rash, wounds, others Allergic/Immunocompromised: denies: Difficulty Healing, Frequent Infections, Hives, Itching, others Hematologic/Lymphatic: denies: anemia, blood clots, easy bleeding, easy bruising, swollen glands, others Endocrine: denies: excessive hunger, excessive sweating, excessive thirst, excessive urination, flushing, intolerance to cold, intolerance to heat, unexplained weight gain, unexplained weight loss, others Psychiatric: denies: anxiety, bipolar disorder, depression, hopeless, panic di sorder, schizophrenia, sleepless, suicidal, others Physical Exam General Appearance: Mild Distress (Patient displays mild anxiety related to his possible septic concerns.), Normal HEENT: Normal ENT Inspection, Pharynx Normal, TMs Normal Neck: Full Range of Motion, Non-Tender, Normal, Normal Inspection Respiratory: Chest Non-Tender, Lungs Clear, No Accessory Muscle Use, No Respiratory Distress, Normal Breath Sounds, Other (Right-sided port was relatively unremarkable and evaluation. No erythema or lymphangitis noted.) Cardiovascular: No Edema, No JVD, No Murmur, No Gallop, Normal Peripheral Pulses, Regular Rate/Rhythm Breast Exam: Deferred Gastrointestinal: No Organomegaly, Non Tender, No Pulsatile Mass, Normal Bowel Sounds, Soft Genitalia: Deferred Pelvic: Deferred Rectal: Deferred Extremities: No calf tenderness, Normal capillary refill, Normal inspection, Normal range of motion, Non-tender, No pedal edema Neurologic: Alert, No Motor Deficits, Normal Affect, Normal Mood, No Sensory Deficits Cerebellar Function: Normal Reflexes: Normal Skin: Dry, Normal Color, Warm Lymphatic: No Adenopathy Was a procedure done? Was a procedure done?: No Differential Dx Considerations may include: Septicemia, electrolyte abnormality, end-stage renal disease on dialysis X-Ray, Labs, Meds, VS Vital Signs Date Time Temp Pulse Resp B/P (MAP) Pulse Ox O2 Delivery O2 Flow Rate FiO2 10/05/24 01:03 153/74 10/04/24 22:53 98.5 65 12 176/55 (95) 97 98.5 10/04/24 21:00 99.3 71 18 162/62 (95) 95 99.3 Lab Test 10/05/24 00:19 10/04/24 22:47 10/04/24 21:51 Range/Units Troponin I High Sensitivity 119 *H 119 *H 109 *H </=54 ng/L White Blood Count 10.1 4.4-10.8 10^3/uL Red Blood Count 4.02 L 4.5-5.90 10^6/uL Hemoglobin 10.6 L 13.5-17.5 g/dL Hematocrit 32.5 L 41.0-53.0 % Mean Corpuscular Volume 80.8 80.0-100.0 fL Mean Corpuscular Hemoglobin 26.4 L 28.0-32.0 pg Mean Corpuscular Hemoglobin Concent 32.7 32.0-36.0 g/dL Red Cell Distribution Width 15.7 H 11.8-14.3 % Platelet Count 311 140-450 10^3/uL Mean Platelet Volume 8.7 6.9-10.8 fL Neutrophils (%) (Auto) 75.0 37.0-80.0 % Lymphocytes (%) (Auto) 10.8 10.0-50.0 % Monocytes (%) (Auto) 11.4 0.0-12.0 % Eosinophils (%) (Auto) 1.9 0.0-7.0 % Basophils (%) (Auto) 0.9 0.0-2.0 % Neutrophils # (Auto) 7.6 1.6-8.6 10 ^3/uL Lymphocytes # (Auto) 1.1 0.4-5.4 10 ^3/uL Monocytes # (Auto) 1.2 0-1.3 10 ^3/uL Eosinophils # (Auto) 0.2 0-0.8 10 ^3/uL Basophils # (Auto) 0.1 0-0.2 10 ^3/uL Nucleated Red Blood Cells 0.0 % Sodium Level 137 136-145 mmol/L Potassium Level 3.5 3.5-5.1 mmol/L Chloride Level 99 98-107 mmol/L Carbon Dioxide Level 29 20-31 mmol/L Anion Gap 9 5-15 Blood Urea Nitrogen 24 H 9-23 mg/dL Creatinine 2.88 H 0.700-1.30 mg/dL Glomerular Filtration Rate Calc 23 >90 mL/min BUN/Creatinine Ratio 8.3 L 10.0-20.0 Serum Glucose 271 #H 74-106 mg/dL Lactic Acid Level 1.1 0.4-2.0 mmol/L Calcium Level 8.2 L 8.7-10.4 mg/dL Total Bilirubin < 0.2 L 0.2-1.0 mg/dL Aspartate Amino Transferase (AST) 20 13-40 U/L Alanine Aminotransferase (ALT) < 9 7-40 U/L Alkaline Phosphatase 93 46-116 U/L Total Protein 6.9 5.7-8.2 g/dL Albumin 3.9 3.2-4.8 g/dL Lipase 73 H 12-53 U/L Current Medications Medications (Trade) Dose Ordered Sig/David Route Start Time Stop Time Status Last Admin Vancomycin HCl 250 ml @ 200 mls/hr ONCE ONCE IV 10/04/24 23:00 10/05/24 00:14 DC 10/05/24 01:15 Clonidine HCl (Catapres Tablet) 0.1 mg ONCE ONCE PO 10/04/24 23:15 10/04/24 23:16 DC 10/05/24 01:03 X-Ray, Labs, Meds, VS Comment All studies performed the ED were evaluated by me personally. Laboratories studies revealed an anemia, confirmation of end-stage renal disease, elevated lipase, elevated troponins. EKG revealed a sinus rhythm with a rate of 66. Atrial premature complex, left ventricular hypertrophy and ST elevation on anterior leads with prolonged QT interval. AL interval of 164 and QT interval 518. Due to the elevated troponins, Dr. Mario was notified. Dr. Mario reviewed EKG and stated it was normal. Patient arrives with a blood culture report showing septicemia. Patient was started empirically on vancomycin. Infectious Disease can modify as needed. Patient will be admitted for IV antibiotics. Patient will require dialysis while at the facility. Patient is has [employer] insurance and therefore, contacted provider Yolande Romero and discussed the patient presentation as well as laboratories and additional studies. She agreed to accept the patient as an admission. Time of 1ST Reevaluation: 01:26 Reevaluation 1ST: Unchanged Consultation: PCP Patient Education/Counseling: Diagnosis, Treatment Family Education/Counseling: Diagnosis, Treatment Departure 1 Departure Time of Disposition: 01:27 Impression: Primary Impression: Septicemia Additional Impressions: End stage renal disease on dialysis Elevated lipase Elevated troponin Hypertension Disposition: 09 ADMITTED INPATIENT Condition: Stable Discharged With: Self Critical Care Note Critical Care Time?: No Stability Stability form required: No Heart Score Heart Score: Heart Score Response (Comments) Value History Slightly Suspicious 0 EKG Repolarization Disturb 1 Age >65 2 Risk Factors 1 or 2 risk factors 1 Troponin Normal limit 0 Total 4 GRIFFIN HERNANDEZ PAC October 05, 2024 01:27
[2024-10-05] MEDS ORDERED: MORPHINE SULFATE INJ 2 MG/ml SYRG IV PRN (02:15)
[2024-10-05] MEDS ORDERED: ACETAMINOPHEN 325 MG TAB PO PRN (02:15)
[2024-10-05] MEDS ORDERED: NITROGLYCERIN 0.4 MG SL TAB SL PRN (02:15)
[2024-10-05] MEDS ORDERED: ONDANSETRON HCL 4 MG/2 ML VIAL IV PRN (02:15)
[2024-10-05] MEDS ORDERED: hydrALAZINE HCL 10 MG TAB PO PRN (02:15)
[2024-10-05] MEDS ORDERED: HYDROcodone-ACET 5/325MG TAB PO PRN (02:15)
[2024-10-05] MEDS ORDERED: HEPARIN SODIUM (PORCINE) 5000 UNITS/ML 1ML VIAL IV ONE (02:15)
[2024-10-05] MEDS ORDERED: VANCOMYCIN PER PHARMACY 0 MG IV SCH (02:15)
[2024-10-05 02:52] LABS: Basophils # (auto) 0.1 10 ^3/uL (0-0.2); Basophils % (auto) 1.1 % (0.0-2.0); Eosinophils # (auto) 0.2 10 ^3/uL (0-0.8); Hemoglobin 10.1 g/dL (13.5-17.5)
[2024-10-05 02:54] LABS: Eosinophils % (auto) 1.9 % (0.0-7.0); Lymphocytes # (auto) 1.3 10 ^3/uL (0.4-5.4); Lymphocytes % (auto) 13.6 % (10.0-50.0); Mean Corpuscular Hemoglobin 26.9 pg (28.0-32.0); Mean Corpuscular Hgb Conc. 32.7 g/dL (32.0-36.0); Mean Corpuscular Volume 82.2 fL (80.0-100.0); Monocytes # (auto) 1.1 10 ^3/uL (0-1.3); Monocytes % (auto) 12.1 % (0.0-12.0); Neutrophils # (auto) 6.6 10 ^3/uL (1.6-8.6); Neutrophils % (auto) 71.3 % (37.0-80.0); Platelet Count (auto) 253 10^3/uL (140-450); Red Blood Cells 3.77 10^6/uL (4.5-5.90); Red Cell Distribution Width 15.8 % (11.8-14.3); White Blood Cell 9.3 10^3/uL (4.4-10.8)
[2024-10-05] MEDS: ASPirin 81 mg TAB PO SCH (02:55)
[2024-10-05] MEDS: cefTRIAXone 1GM/50ML D5W 50 ML IV SCH (02:55)
[2024-10-05] MEDS ORDERED: DEXTROSE (50%) 50ML SYRG IV PRN (03:00)
[2024-10-05 03:09] LABS: INR 1.05 (0.9-1.15); Partial Thromboplastin Time 27.4 SEC (24.5-34.5); Prothrombin Time 11.1 sec (9.3-11.8)
--- NOTE | 2024-10-05 03:38 | DVH ---
CHEST RADIOGRAPH Indication: admission Technique: Single frontal view of the chest was obtained COMPARISON: XY CHEST PORTABLE on DOS: 10/03/24, XY CHEST PORTABLE on DOS: 11/05/23 FINDINGS: Lines and Tubes: Right permCath tip within the right atrium. Lungs: Small bilateral pleural effusions, [id number]. The lungs are otherwise clear. No evidence of focal consolidation. No pneumothorax. Cardiomediastinal contours: Unremarkable. Atherosclerotic vascular calcification. Bones: Unremarkable IMPRESSION: 1. Small bilateral pleural effusions, [id number]. 2. Right PermCath
[2024-10-05 03:42] LABS: LDL Cholesterol 40 mg/dL (< 100); Triglycerides 135 mg/dL (< 150)
[2024-10-05 03:44] LABS: Cholesterol 95 mg/dL (< 200)
[2024-10-05 03:53] LABS: HDL Cholesterol 33 mg/dL (40-59)
[2024-10-05 04:18] LABS: Urine Bacteria None Seen /hpf (None Seen)
--- NOTE | 2024-10-05 04:27 | DVHHP2 ---
Admitting Diagnosis: Bacterimia, elevated troponin levels, ESRD on HD History of Present Illness History Source: Patient Exam Limitations: No limitations HPI Mr. Cortes Au is a 69-year-old male with a history of ESRD on HD, DM who presents for evaluation of positive blood culture concerns. Patient suffers from end-stage renal disease and is currently on hemodialysis. Patient's dialysis center sent him to our location due to concerns of sepsis due to Gram- positive cocci in pairs and clusters noted on blood cultures. Patient denies any chest pain, headaches, fever, nausea or vomiting. Patient admitted for further evaluation and treatment. Home Meds Active Scripts Clonidine Hydrochloride (Clonidine Hcl) 0.1 Mg Tab, 0.1 MG PO Q8HPRN PRN for 30 Days, #90 TAB Prov:SUKUMAR PEDRO MD 11/08/23 Amlodipine Besylate (NORVASC TABLET) 5 Mg Tb, 10 MG PO DAILY, #60 TAB Prov:SUKUMAR PEDRO MD 11/08/23 Sevelamer Hydrochloride (Renagel) 800 Mg Tab, 800 MG PO TIDWM, #90 TAB Prov:SUKUMAR PEDRO MD 11/08/23 Metoprolol Tartrate (Lopressor) 25 Mg Tb, 12.5 MG PO BID for 30 Days, #30 TAB Prov:SUKUMAR PEDRO MD 11/08/23 Hydralazine HCl (Hydralazine HCl) 25 Mg Tab, 50 MG PO Q8HR, #90 TAB Prov:SUKUMAR PEDRO MD 11/08/23 Atorvastatin Calcium (ATORVASTATIN CALCIUM) 20 Mg Tab, 20 MG PO DAILY, #60 TAB Prov:SUKUMAR PEDRO MD 11/08/23 Aspirin (Aspirin Low Dose) 81 Mg Tab, 81 MG PO DAILY for 60 Days, #60 TAB Prov:SUKUMAR PEDRO MD 11/08/23 Reported Medications Nifedipine (PROCARDIA CAPSULE) 10 Mg Cp, 90 MG PO DAILY, CAP 10/05/24 Losartan Potassium (Losartan Potassium) 50 Mg Tab, 50 MG PO DAILY for 30 Days, MG 10/05/24 Metformin Hydrochloride (Metformin Hcl) 850 Mg Tab, 850 MG PO TID, TAB 11/06/23 Glyburide (Glyburide) 5 Mg Tab, 2 TAB PO DAILY, MG 11/06/23 Empagliflozin (Jardiance) 25 Mg Tab, 25 MG PO DAILY, TAB 11/06/23 Past Medical History Cardiac: No pertinent Hx Pulmonary: No pertinent Hx Central Nervous System: No pertinent Hx GI: No pertinent Hx Hemotology/Oncology: No pertinent Hx Hepatobiliary: No pertinent Hx Psychiatric: No pertinent Hx Musculoskeletal: No pertinent Hx Rheumotologic: No pertinent Hx Infectious Disease: No peritnent Hx ENT: No pertinent Hx Renal/: ESRD HD/PD Endocrine: NIDDM Dermatology: No pertinent Hx Patient Family History: Hypertension G8 MOTHER G8 FATHER Smoker: No Hx (Negative) Alocohol: None Drugs: None Lives with: With family Domestic Violence: Neg Review of Systems Constitutional: No symptom reported Ears, Nose, & Throat: No symptom reported Eyes: No symptom reported Pulmonary/Respiratory: No symptom reported Cardiovascular: No symptom reported Gastrointestinal: No symptom reported Genitourinary: No symptom reported Musculoskeletal: No symptom reported Skin: No symptom reported Psychiatric: No symptom reported Endocrine: No symptom reported Hemotologic/Lymphatic: No symptom reported H&P Exam Vital Signs Vital Signs Date Time Temp Pulse Resp B/P (MAP) Pulse Ox O2 Delivery O2 Flow Rate FiO2 10/05/24 01:03 153/74 10/04/24 22:53 98.5 65 12 97 98.5 General Appeara: Well developed, Well nourished, Normal Appearance Head Exam: Normal inspection Neck Exam: Normal inspection, Non-tender, Normal alignment Eye Exam: bilateral eye Normal inspection, bilateral eye PERRL, bilateral eye EOMI Ear Exam: bilateral ear Auricle normal Nasal Exam: Normal inspection Mouth: Normal Inspection Pulmonary/Respiratory: Normal inspection, Normal breath sounds, Chest non- tender, Lungs clear Cardiovascular/Chest: Normal inspection, Regular rate, Normal Rhythm Peripheral Pulses: 2+ dorsalis pedis (R), 2+ dorsalis pedis (L), 2+ Radial (R), 2+ Radial (L) Abdominal Exam: Normal bowel sounds, Soft, No tenderness Rectal Exam: Deferred 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: Normal hearing, Normal speech, PERRL Neuro/Mental St: Alert, Oriented Eye contact/ Speech: Cooperative, Good eye contact, Normal speech Thoughts/Psych: Normal thought pattern Skin Exam: Normal inspection, Normal color, Warm/dry Labs/Xrays Labs Test 10/05/24 02:34 10/05/24 00:19 10/04/24 21:51 Range/Units White Blood Count 9.3 4.4-10.8 10^3/uL Red Blood Count 3.77 L 4.5-5.90 10^6/uL Hemoglobin 10.1 L 13.5-17.5 g/dL Hematocrit 31.0 L 41.0-53.0 % Mean Corpuscular Volume 82.2 80.0-100.0 fL Mean Corpuscular Hemoglobin 26.9 L 28.0-32.0 pg Mean Corpuscular Hemoglobin Concent 32.7 32.0-36.0 g/dL Red Cell Distribution Width 15.8 H 11.8-14.3 % Platelet Count 253 140-450 10^3/uL Mean Platelet Volume 8.4 6.9-10.8 fL Neutrophils (%) (Auto) 71.3 37.0-80.0 % Lymphocytes (%) (Auto) 13.6 10.0-50.0 % Monocytes (%) (Auto) 12.1 H 0.0-12.0 % Eosinophils (%) (Auto) 1.9 0.0-7.0 % Basophils (%) (Auto) 1.1 0.0-2.0 % Neutrophils # (Auto) 6.6 1.6-8.6 10 ^3/uL Lymphocytes # (Auto) 1.3 0.4-5.4 10 ^3/uL Monocytes # (Auto) 1.1 0-1.3 10 ^3/uL Eosinophils # (Auto) 0.2 0-0.8 10 ^3/uL Basophils # (Auto) 0.1 0-0.2 10 ^3/uL Nucleated Red Blood Cells 0.0 % Prothrombin Time 11.1 9.3-11.8 sec Prothrombin Time INR 1.05 0.9-1.15 Activated Partial Thromboplast Time 27.4 24.5-34.5 SEC Lactic Acid Level 0.9 0.4-2.0 mmol/L Troponin I High Sensitivity 119 *H </=54 ng/L Triglycerides Level 135 < 150 mg/dL Cholesterol Level 95 < 200 mg/dL LDL Cholesterol 40 < 100 mg/dL HDL Cholesterol 33 L 40-59 mg/dL Sodium Level 137 136-145 mmol/L Potassium Level 3.5 3.5-5.1 mmol/L Chloride Level 99 98-107 mmol/L Carbon Dioxide Level 29 20-31 mmol/L Anion Gap 9 5-15 Blood Urea Nitrogen 24 H 9-23 mg/dL Creatinine 2.88 H 0.700-1.30 mg/dL Glomerular Filtration Rate Calc 23 >90 mL/min BUN/Creatinine Ratio 8.3 L 10.0-20.0 Serum Glucose 271 #H 74-106 mg/dL Calcium Level 8.2 L 8.7-10.4 mg/dL Total Bilirubin < 0.2 L 0.2-1.0 mg/dL Aspartate Amino Transferase (AST) 20 13-40 U/L Alanine Aminotransferase (ALT) < 9 7-40 U/L Alkaline Phosphatase 93 46-116 U/L Total Protein 6.9 5.7-8.2 g/dL Albumin 3.9 3.2-4.8 g/dL Lipase 73 H 12-53 U/L Assessment/Plan Problem List: (1) Bacteremia (2) Elevated troponin (3) End stage renal disease on dialysis Plan This is a 69 yo male with known history of ESRD on HD, DM who presents with positive blood cultures sent from HD clinic to ED. 1. Elevated troponin levels 2. Bacteremia 3. ESRD on DM 4. DM 5. Hypertension Plan Admit Telemetry Cardiology consultation, 2D echocardiogram, serial troponin levels, ASA, Statin, Heparin drip per pharmacy ACS protocol Infectious disease consultation, IV antibiotics Nephrology consultation Glucose monitoring AC & HS coverage with regular insulin sliding scale Monitor BMP BC x2 urine culture GI ppx Addendum: patient with hypertensive urgency upgraded to ICU started on Nicardipine drip per protocol Discussed all above with patient who verbalizes agreement and understanding of care plan. All questions were answered. Discussed assessment and care plan with supervising MD. Plan discussed with: Patient, Other Code Visit Code Visit Total Time (mins): 45 Additional Comments Additional Comments Additional Comments Patient was seen and evaluated on September me. I agree with the assessment and plan as outlined by my nurse practitioner. RAQUEL FONTENOT October 05, 2024 04:27 SUKUMAR PEDRO MD October 05, 2024 16:19
[2024-10-05 04:30] VITALS: PULSE 56; RESP 16; O2SAT 94
[2024-10-05] MEDS: hydrALAZINE HCL 20 MG/ML VL IV PRN (05:05)
[2024-10-05 05:21] LABS: Urine Blood Negative /uL (Negative); Urine Budding Yeast OCCASIONAL /hpf (None Seen); Urine Clarity Turbid (Clear); Urine Color Yellow (Yellow); Urine Protein, UAD 3+ (Negative); Urine Squamous Epithelial Cell FEW /hpf (<5); Urine Urobilinogen Normal (Negative); Urine WBC 10 /HPF (0-3)
[2024-10-05] MEDS: HEPARIN DRIP/D5W 100UNITS/ML 250 ML IV SCH ×3 (05:28→18:28)
[2024-10-05 06:00] LABS: Basophils # (auto) 0.1 10 ^3/uL (0-0.2); Eosinophils # (auto) 0.2 10 ^3/uL (0-0.8); Monocytes # (auto) 1.1 10 ^3/uL (0-1.3); Red Cell Distribution Width 15.4 % (11.8-14.3)
[2024-10-05] MEDS: cloNIDine HCL 0.1 MG TAB PO PRN (06:01)
[2024-10-05 06:03] LABS: Basophils % (auto) 1.1 % (0.0-2.0); Eosinophils % (auto) 2.1 % (0.0-7.0); Hematocrit 30.5 % (41.0-53.0); Lymphocytes # (auto) 1.1 10 ^3/uL (0.4-5.4); Lymphocytes % (auto) 13.9 % (10.0-50.0); Mean Corpuscular Hemoglobin 26.5 pg (28.0-32.0); Mean Corpuscular Hgb Conc. 32.8 g/dL (32.0-36.0); Monocytes % (auto) 13.1 % (0.0-12.0); Neutrophils # (auto) 5.7 10 ^3/uL (1.6-8.6); Neutrophils % (auto) 69.8 % (37.0-80.0); Platelet Count (auto) 257 10^3/uL (140-450); Red Blood Cells 3.76 10^6/uL (4.5-5.90); White Blood Cell 8.2 10^3/uL (4.4-10.8)
[2024-10-05 06:10] LABS: Potassium 3.8 mmol/L (3.5-5.1)
[2024-10-05 06:11] LABS: Anion Gap 8 (5-15); Carbon Dioxide 28 mmol/L (20-31)
[2024-10-05 06:16] LABS: BUN/Creatinine Ratio 8.7 (10.0-20.0); Lipase 41 U/L (12-53)
[2024-10-05 06:32] LABS: Blood Urea Nitrogen 28 mg/dL (9-23); Calcium 8.3 mg/dL (8.7-10.4); Chloride 98 mmol/L (98-107); Glucose 364 mg/dL (74-106); Sodium 134 mmol/L (136-145)
[2024-10-05] MEDS: hydrALAZINE HCL 25 MG TAB PO SCH (06:53)
[2024-10-05] MEDS ORDERED: NIFE10CA52 PO (06:59)
[2024-10-05] MEDS ORDERED: LOSA-534 PO (06:59)
[2024-10-05] MEDS: ACCU-CHEK COMFORT CURVE STRIP VI SCH (07:00)
[2024-10-05 07:20] VITALS: PULSE 62; RESP 12; O2SAT 95
[2024-10-05] MEDS: InsuLIN REG 1unit/0.01ml Soln (100units/ml) SC SCH (07:50)
[2024-10-05] MEDS: SEVELAMER 800 MG TAB PO SCH (08:30)
[2024-10-05 10:25] LABS: INR 1.08 (0.9-1.15); Partial Thromboplastin Time 32.3 SEC (24.5-34.5); Prothrombin Time 11.4 sec (9.3-11.8)
[2024-10-05] MEDS: PANTOPRAZOLE 40 MG/10 ML VIAL INJ IV SCH (10:34)
[2024-10-05] MEDS: amLODIPine BESYLATE 5 MG TAB PO SCH (10:36)
[2024-10-05] MEDS: METOPROLOL TARTRATE 25 MG TAB PO SCH (10:36)
--- NOTE | 2024-10-05 10:47 | CONS ---
Pharmacy Clinical Information: HEPARIN DRIP RATE INCREASED TO 1000 UNITS/HR = 10 ML/HR PER APTT OF 32.3 NO BOLUS NEXT APTT DRAW SCHEDULED FOR 1700 PER RX PROTOCOL CONFIRMED WITH RN CHRISTIN FRIED PHARMACIST October 05, 2024 10:47
--- NOTE | 2024-10-05 11:07 | DVHINCON2 ---
Date of service: October 05, [address] Pedro Reason for Consultation bacteremia as outpt History of Present Illness Mr. Cortes Au is a 69-year-old male with a history of ESRD on HD, DM who presents for evaluation of positive blood culture concerns. Patient suffers from end-stage renal disease and is currently on hemodialysis. Patient's dialysis center sent him to ER due to concerns of sepsis due to Gram-positive cocci in pairs and clusters noted on blood cultures. Patient denies any chest pain, headaches, fever, nausea or vomiting. Patient admitted for further evaluation and treatment. ID is consulted Family History: Hypertension G8 MOTHER G8 FATHER Allergies: Coded Allergies: NO KNOWN ALLERGIES (Unverified , 11/05/23) Home Meds Active Scripts Clonidine Hydrochloride (Clonidine Hcl) 0.1 Mg Tab, 0.1 MG PO Q8HPRN PRN for 30 Days, #90 TAB Prov:SUKUMAR PEDRO MD 11/08/23 Amlodipine Besylate (NORVASC TABLET) 5 Mg Tb, 10 MG PO DAILY, #60 TAB Prov:SUKUMAR PEDRO MD 11/08/23 Sevelamer Hydrochloride (Renagel) 800 Mg Tab, 800 MG PO TIDWM, #90 TAB Prov:SUKUMAR PEDRO MD 11/08/23 Metoprolol Tartrate (Lopressor) 25 Mg Tb, 12.5 MG PO BID for 30 Days, #30 TAB Prov:SUKUMAR PEDRO MD 11/08/23 Hydralazine HCl (Hydralazine HCl) 25 Mg Tab, 50 MG PO Q8HR, #90 TAB Prov:SUKUMAR PEDRO MD 11/08/23 Atorvastatin Calcium (ATORVASTATIN CALCIUM) 20 Mg Tab, 20 MG PO DAILY, #60 TAB Prov:SUKUMAR PEDRO MD 11/08/23 Aspirin (Aspirin Low Dose) 81 Mg Tab, 81 MG PO DAILY for 60 Days, #60 TAB Prov:SUKUMAR PEDRO MD 11/08/23 Reported Medications Carvedilol (Carvedilol) 6.25 Mg Tab, 6.25 MG PO Q12HR for 30 Days, MG 10/06/24 Furosemide (Furosemide) 20 Mg Tab, 20 MG PO DAILY for 30 Days, MG 10/06/24 Ferrous Sulfate (Ferrous Sulfate) 325 Mg Tab, 325 MG PO BIDWM for 30 Days, MG 10/06/24 Nifedipine (PROCARDIA CAPSULE) 10 Mg Cp, 90 MG PO DAILY, CAP 10/05/24 Losartan Potassium (Losartan Potassium) 50 Mg Tab, 50 MG PO DAILY for 30 Days, MG 10/05/24 Metformin Hydrochloride (Metformin Hcl) 850 Mg Tab, 850 MG PO TID, TAB 11/06/23 Glyburide (Glyburide) 5 Mg Tab, 2 TAB PO DAILY, MG 11/06/23 Empagliflozin (Jardiance) 25 Mg Tab, 25 MG PO DAILY, TAB 11/06/23 Current Medications Current Medications Medications (Trade) Dose Ordered Sig/David Route PRN Reason Start Time Stop Time Status Last Admin Vancomycin HCl 0 ml @ 0 mls/hr UD IV 10/04/24 21:45 Nitroglycerin (Ntrostat Sublingual) 0.4 mg Q5MINP PRN SL FOR CHEST PAIN 10/05/24 02:15 Morphine Sulfate 2 mg Q30M PRN IV FOR CHEST PAIN 10/05/24 02:15 Vancomycin HCl 0 ml @ 0 mls/hr UD IV 10/05/24 02:15 10/05/24 02:33 DC Ceftriaxone Sodium 50 ml @ 100 mls/hr DAILY IV 10/05/24 02:15 10/05/24 10:35 Ondansetron HCl (Zofran) 4 mg Q6HP PRN IV NAUSEA / VOMITING 10/05/24 02:15 Pantoprazole Sodium (Protonix) 40 mg DAILY IV 10/05/24 10:00 10/05/24 10:34 Acetaminophen (Tylenol Tablet) 650 mg Q6HPRN PRN PO PAIN SCALE 1-3 OR TEMP>100.4 10/05/24 02:15 Acetaminophen/ Hydrocodone Bitart ([place] 5/325MG Tab) 1 tab Q6HPRN PRN PO PAIN SCALE 4 THRU 6 10/05/24 02:15 Hydralazine HCl (Apresoline Tablet) 10 mg Q6HPRN PRN PO SBP>160 10/05/24 02:15 Cancel Aspirin 81 mg DAILY PO 10/05/24 02:15 10/05/24 10:35 Heparin Sodium/ Dextrose 250 ml @ 7 mls/hr Q24H IV 10/05/24 03:15 10/05/24 10:41 DC 10/05/24 05:28 Atorvastatin Calcium (Lipitor) 40 mg HS PO 10/05/24 22:00 Amlodipine Besylate (Norvasc Tablet) 10 mg DAILY PO 10/05/24 10:00 10/05/24 10:36 Hydralazine HCl (Apresoline Tablet) 50 mg Q8HR PO 10/05/24 06:00 10/05/24 06:53 Metoprolol Tartrate (Lopressor Tablet) 12.5 mg BID PO 10/05/24 10:00 10/05/24 10:36 Sevelamer HCl (Renagel) 800 mg TIDWM PO 10/05/24 08:00 10/05/24 08:30 Diagnostic Test (Pha) (Accu-Chek Comfort Curve T) 1 strip ACHS 10/05/24 07:00 10/05/24 07:00 Insulin Human Regular (InsuLIN R) ACHS SC 10/05/24 07:00 10/05/24 07:50 Dextrose 50 ml UD PRN IV Blood Sugar LESS THAN 60 10/05/24 03:00 Clonidine HCl (Catapres Tablet) 0.1 mg Q8HPRN PRN PO SBP>180 10/05/24 03:00 10/05/24 06:01 Hydralazine HCl (Apresoline Injection) 10 mg Q6HP PRN IV SBP>160 10/05/24 03:00 10/05/24 05:05 Nicardipine HCl 250 ml @ 50 mls/hr Q5H IV 10/05/24 07:15 10/05/24 09:03 Heparin Sodium/ Dextrose 250 ml @ 10 mls/hr Q24H IV 10/05/24 10:45 Review of Systems ROS: all 10 systems reviewed and are neg except as noted in HPI. Vital Signs Vital Signs Date Time Temp Pulse Resp B/P (MAP) Pulse Ox O2 Delivery O2 Flow Rate FiO2 10/05/24 10:36 61 132/56 10/05/24 04:30 16 94 Room Air* 0 21 10/05/24 04:25 97.8 97.8 Physical Exam General alert and oriented HEENT: Atraumatic Neck: No swelling Lungs: Equal air entry and clear to auscultation Cardiovascular: S2 heard no murmur Abdomen: Soft nontender, no organomegaly, nondistended Neuro: Alert and oriented, no focal deficit Psych: Normal mood and affect Labs/Diagnostic Data Labs Test 10/05/24 09:22 10/05/24 07:45 10/05/24 05:52 10/05/24 04:17 Range/Units Prothrombin Time 11.4 9.3-11.8 sec Prothrombin Time INR 1.08 0.9-1.15 Activated Partial Thromboplast Time 32.3 24.5-34.5 SEC POC Glucose 336 H 70-106 mg/dl White Blood Count 8.2 4.4-10.8 10^3/uL Red Blood Count 3.76 L 4.5-5.90 10^6/uL Hemoglobin 10.0 L 13.5-17.5 g/dL Hematocrit 30.5 L 41.0-53.0 % Mean Corpuscular Volume 81.0 80.0-100.0 fL Mean Corpuscular Hemoglobin 26.5 L 28.0-32.0 pg Mean Corpuscular Hemoglobin Concent 32.8 32.0-36.0 g/dL Red Cell Distribution Width 15.4 H 11.8-14.3 % Platelet Count 257 140-450 10^3/uL Mean Platelet Volume 8.2 6.9-10.8 fL Neutrophils (%) (Auto) 69.8 37.0-80.0 % Lymphocytes (%) (Auto) 13.9 10.0-50.0 % Monocytes (%) (Auto) 13.1 H 0.0-12.0 % Eosinophils (%) (Auto) 2.1 0.0-7.0 % Basophils (%) (Auto) 1.1 0.0-2.0 % Neutrophils # (Auto) 5.7 1.6-8.6 10 ^3/uL Lymphocytes # (Auto) 1.1 0.4-5.4 10 ^3/uL Monocytes # (Auto) 1.1 0-1.3 10 ^3/uL Eosinophils # (Auto) 0.2 0-0.8 10 ^3/uL Basophils # (Auto) 0.1 0-0.2 10 ^3/uL Nucleated Red Blood Cells 0.0 % Sodium Level 134 L 136-145 mmol/L Potassium Level 3.8 3.5-5.1 mmol/L Chloride Level 98 98-107 mmol/L Carbon Dioxide Level 28 20-31 mmol/L Anion Gap 8 5-15 Blood Urea Nitrogen 28 H 9-23 mg/dL Creatinine 3.22 H 0.700-1.30 mg/dL Glomerular Filtration Rate Calc 20 >90 mL/min BUN/Creatinine Ratio 8.7 L 10.0-20.0 Serum Glucose 364 H 74-106 mg/dL Calcium Level 8.3 L 8.7-10.4 mg/dL Troponin I High Sensitivity 126 *H </=54 ng/L Lipase 41 12-53 U/L Urine Color Yellow Yellow Urine Clarity Turbid H Clear Urine pH 6.0 5.0-9.0 Urine Specific [place] 1.020 1.001-1.035 Urine Protein 3+ H Negative Urine Ketones Negative Negative Urine Blood Negative Negative /uL Urine Nitrite Negative Negative Urine Bilirubin Negative Negative Urine Urobilinogen Normal Negative mg/dL Urine Leukocyte Esterase Negative Negative /uL Urine RBC 1 0 - 3 /hpf Urine Microscopic WBC 10 H 0-3 /HPF Urine Squamous Epithelial Cells Few <5 /hpf Urine Bacteria None seen None Seen /hpf Urine Yeast (Budding) Occasional None Seen /hpf Urine Glucose 4+ H Normal mg/dL Test 10/05/24 02:34 10/05/24 00:19 10/04/24 21:51 Range/Units Lactic Acid Level 0.9 0.4-2.0 mmol/L Triglycerides Level 135 < 150 mg/dL Cholesterol Level 95 < 200 mg/dL LDL Cholesterol 40 < 100 mg/dL HDL Cholesterol 33 L 40-59 mg/dL Total Bilirubin < 0.2 L 0.2-1.0 mg/dL Aspartate Amino Transferase (AST) 20 13-40 U/L Alanine Aminotransferase (ALT) < 9 7-40 U/L Alkaline Phosphatase 93 46-116 U/L Total Protein 6.9 5.7-8.2 g/dL Albumin 3.9 3.2-4.8 g/dL Assessment A 65-year-old male Bacteremia due to GPC End-stage renal disease on hemodialysis Diabetes Recommendations Request outside records for bacteremia Here blood cultures are sent, follow We will empirically cover with IV vancomycin and IV ceftriaxone, monitor for toxicity Follow random vanco level Chest x-ray reviewed personally, no infiltrate Thank you for consultation Plan discussed with Dr. Pedro Total of 80 minutes spent during the encounter, reviewing records, formulating plan and discussion Plan discussed with: Patient, Other RIVKA FARAH MD October 05, 2024 11:07
[2024-10-05 11:17] LABS: Magnesium 1.8 mg/dL (1.6-2.6)
[2024-10-05 11:18] LABS: Phosphorus 3.3 mg/dL (2.4-5.1)
--- NOTE | 2024-10-05 11:45 | DVHINCON2 ---
Date of service: October 05, 2024 Referring Physician Yolande Romero, nurse practitioner Reason for Consultation End-stage renal disease to manage hemodialysis History of Present Illness Patient is 62-year-old male with past medical history of end-stage renal disease on hemodialysis every Monday and Monday, diabetes mellitus type 2 and hypertension is admitted after was sent from hemodialysis center for Gram-positive bacteremia. On admission Nephrology is consulted to manage his hemodialysis Past Medical History End-stage renal disease Diabetes mellitus Hypertension Past Surgical History Right tunneled IJ hemodialysis catheter Allergies: Coded Allergies: NO KNOWN ALLERGIES (Unverified , 11/05/23) Home Meds Active Scripts Clonidine Hydrochloride (Clonidine Hcl) 0.1 Mg Tab, 0.1 MG PO Q8HPRN PRN for 30 Days, #90 TAB Prov:SUKUMAR PEDRO MD 11/08/23 Amlodipine Besylate (NORVASC TABLET) 5 Mg Tb, 10 MG PO DAILY, #60 TAB Prov:SUKUMAR PEDRO MD 11/08/23 Sevelamer Hydrochloride (Renagel) 800 Mg Tab, 800 MG PO TIDWM, #90 TAB Prov:SUKUMAR PEDRO MD 11/08/23 Metoprolol Tartrate (Lopressor) 25 Mg Tb, 12.5 MG PO BID for 30 Days, #30 TAB Prov:SUKUMAR PEDRO MD 11/08/23 Hydralazine HCl (Hydralazine HCl) 25 Mg Tab, 50 MG PO Q8HR, #90 TAB Prov:SUKUMAR PEDRO MD 11/08/23 Atorvastatin Calcium (ATORVASTATIN CALCIUM) 20 Mg Tab, 20 MG PO DAILY, #60 TAB Prov:SUKUMAR PEDRO MD 11/08/23 Aspirin (Aspirin Low Dose) 81 Mg Tab, 81 MG PO DAILY for 60 Days, #60 TAB Prov:SUKUMAR PEDRO MD 11/08/23 Reported Medications Nifedipine (PROCARDIA CAPSULE) 10 Mg Cp, 90 MG PO DAILY, CAP 10/05/24 Losartan Potassium (Losartan Potassium) 50 Mg Tab, 50 MG PO DAILY for 30 Days, MG 10/05/24 Metformin Hydrochloride (Metformin Hcl) 850 Mg Tab, 850 MG PO TID, TAB 11/06/23 Glyburide (Glyburide) 5 Mg Tab, 2 TAB PO DAILY, MG 11/06/23 Empagliflozin (Jardiance) 25 Mg Tab, 25 MG PO DAILY, TAB 11/06/23 Current Medications Current Medications Medications (Trade) Dose Ordered Sig/David Route PRN Reason Start Time Stop Time Status Last Admin Vancomycin HCl 0 ml @ 0 mls/hr UD IV 10/04/24 21:45 Nitroglycerin (Ntrostat Sublingual) 0.4 mg Q5MINP PRN SL FOR CHEST PAIN 10/05/24 02:15 Morphine Sulfate 2 mg Q30M PRN IV FOR CHEST PAIN 10/05/24 02:15 Vancomycin HCl 0 ml @ 0 mls/hr UD IV 10/05/24 02:15 10/05/24 02:33 DC Ceftriaxone Sodium 50 ml @ 100 mls/hr DAILY IV 10/05/24 02:15 10/05/24 10:35 Ondansetron HCl (Zofran) 4 mg Q6HP PRN IV NAUSEA / VOMITING 10/05/24 02:15 Pantoprazole Sodium (Protonix) 40 mg DAILY IV 10/05/24 10:00 10/05/24 10:34 Acetaminophen (Tylenol Tablet) 650 mg Q6HPRN PRN PO PAIN SCALE 1-3 OR TEMP>100.4 10/05/24 02:15 Acetaminophen/ Hydrocodone Bitart (Calvert 5/325MG Tab) 1 tab Q6HPRN PRN PO PAIN SCALE 4 THRU 6 10/05/24 02:15 Hydralazine HCl (Apresoline Tablet) 10 mg Q6HPRN PRN PO SBP>160 10/05/24 02:15 Cancel Aspirin 81 mg DAILY PO 10/05/24 02:15 10/05/24 10:35 Heparin Sodium/ Dextrose 250 ml @ 7 mls/hr Q24H IV 10/05/24 03:15 10/05/24 10:41 DC 10/05/24 05:28 Atorvastatin Calcium (Lipitor) 40 mg HS PO 10/05/24 22:00 Amlodipine Besylate (Norvasc Tablet) 10 mg DAILY PO 10/05/24 10:00 10/05/24 10:36 Hydralazine HCl (Apresoline Tablet) 50 mg Q8HR PO 10/05/24 06:00 10/05/24 06:53 Metoprolol Tartrate (Lopressor Tablet) 12.5 mg BID PO 10/05/24 10:00 10/05/24 10:36 Sevelamer HCl (Renagel) 800 mg TIDWM PO 10/05/24 08:00 10/05/24 08:30 Diagnostic Test (Pha) (Accu-Chek Comfort Curve T) 1 strip ACHS 10/05/24 07:00 10/05/24 07:00 Insulin Human Regular (InsuLIN R) ACHS SC 10/05/24 07:00 10/05/24 07:50 Dextrose 50 ml UD PRN IV Blood Sugar LESS THAN 60 10/05/24 03:00 Clonidine HCl (Catapres Tablet) 0.1 mg Q8HPRN PRN PO SBP>180 10/05/24 03:00 10/05/24 06:01 Hydralazine HCl (Apresoline Injection) 10 mg Q6HP PRN IV SBP>160 10/05/24 03:00 10/05/24 05:05 Nicardipine HCl 250 ml @ 50 mls/hr Q5H IV 10/05/24 07:15 10/05/24 09:03 Heparin Sodium/ Dextrose 250 ml @ 10 mls/hr Q24H IV 10/05/24 10:45 10/05/24 11:08 Family History: Hypertension G8 MOTHER G8 FATHER Review of Systems All 12 item review of systems reviewed with the patient nonsignificant except what is mentioned in the history of present illness H&P Exam Vital Signs/I&O Vital Sign Date Time Temp Pulse Resp B/P (MAP) Pulse Ox O2 Delivery O2 Flow Rate FiO2 10/05/24 11:11 60 124/55 10/05/24 04:30 16 94 Room Air* 0 21 10/05/24 04:25 97.8 97.8 Intake and Output 10/04/24 10/05/24 19:00 07:00 Intake Total 300 ml Balance 300 ml Intake IV Total 300 ml Physical Exam Patient is awake and alert Lungs clear to auscultation bilaterally Cardiac exam regular rate and rhythm GI soft nontender normal Extremities no clubbing cyanosis or edema Neuro nonfocal Labs/Diagnostic Data Labs/Diagnostic Data Laboratory Tests Test 10/05/24 09:22 10/05/24 07:45 10/05/24 05:52 10/05/24 04:17 Range/Units Prothrombin Time 11.4 9.3-11.8 sec Prothrombin Time INR 1.08 0.9-1.15 Activated Partial Thromboplast Time 32.3 24.5-34.5 SEC POC Glucose 336 H 70-106 mg/dl White Blood Count 8.2 4.4-10.8 10^3/uL Red Blood Count 3.76 L 4.5-5.90 10^6/uL Hemoglobin 10.0 L 13.5-17.5 g/dL Hematocrit 30.5 L 41.0-53.0 % Mean Corpuscular Volume 81.0 80.0-100.0 fL Mean Corpuscular Hemoglobin 26.5 L 28.0-32.0 pg Mean Corpuscular Hemoglobin Concent 32.8 32.0-36.0 g/dL Red Cell Distribution Width 15.4 H 11.8-14.3 % Platelet Count 257 140-450 10^3/uL Mean Platelet Volume 8.2 6.9-10.8 fL Neutrophils (%) (Auto) 69.8 37.0-80.0 % Lymphocytes (%) (Auto) 13.9 10.0-50.0 % Monocytes (%) (Auto) 13.1 H 0.0-12.0 % Eosinophils (%) (Auto) 2.1 0.0-7.0 % Basophils (%) (Auto) 1.1 0.0-2.0 % Neutrophils # (Auto) 5.7 1.6-8.6 10 ^3/uL Lymphocytes # (Auto) 1.1 0.4-5.4 10 ^3/uL Monocytes # (Auto) 1.1 0-1.3 10 ^3/uL Eosinophils # (Auto) 0.2 0-0.8 10 ^3/uL Basophils # (Auto) 0.1 0-0.2 10 ^3/uL Nucleated Red Blood Cells 0.0 % Sodium Level 134 L 136-145 mmol/L Potassium Level 3.8 3.5-5.1 mmol/L Chloride Level 98 98-107 mmol/L Carbon Dioxide Level 28 20-31 mmol/L Anion Gap 8 5-15 Blood Urea Nitrogen 28 H 9-23 mg/dL Creatinine 3.22 H 0.700-1.30 mg/dL Glomerular Filtration Rate Calc 20 >90 mL/min BUN/Creatinine Ratio 8.7 L 10.0-20.0 Serum Glucose 364 H 74-106 mg/dL Calcium Level 8.3 L 8.7-10.4 mg/dL Phosphorus Level 3.3 2.4-5.1 mg/dL Magnesium Level 1.8 1.6-2.6 mg/dL Troponin I High Sensitivity 126 *H </=54 ng/L B-Type Natriuretic Peptide 29.74 0-100 pg/mL Lipase 41 12-53 U/L Urine Color Yellow Yellow Urine Clarity Turbid H Clear Urine pH 6.0 5.0-9.0 Urine Specific [place] 1.020 1.001-1.035 Urine Protein 3+ H Negative Urine Ketones Negative Negative Urine Blood Negative Negative /uL Urine Nitrite Negative Negative Urine Bilirubin Negative Negative Urine Urobilinogen Normal Negative mg/dL Urine Leukocyte Esterase Negative Negative /uL Urine RBC 1 0 - 3 /hpf Urine Microscopic WBC 10 H 0-3 /HPF Urine Squamous Epithelial Cells Few <5 /hpf Urine Bacteria None seen None Seen /hpf Urine Yeast (Budding) Occasional None Seen /hpf Urine Glucose 4+ H Normal mg/dL Test 10/05/24 02:34 10/05/24 00:19 10/04/24 22:47 10/04/24 21:51 Range/Units White Blood Count 9.3 10.1 4.4-10.8 10^3/uL Red Blood Count 3.77 L 4.02 L 4.5-5.90 10^6/uL Hemoglobin 10.1 L 10.6 L 13.5-17.5 g/dL Hematocrit 31.0 L 32.5 L 41.0-53.0 % Mean Corpuscular Volume 82.2 80.8 80.0-100.0 fL Mean Corpuscular Hemoglobin 26.9 L 26.4 L 28.0-32.0 pg Mean Corpuscular Hemoglobin Concent 32.7 32.7 32.0-36.0 g/dL Red Cell Distribution Width 15.8 H 15.7 H 11.8-14.3 % Platelet Count 253 311 140-450 10^3/uL Mean Platelet Volume 8.4 8.7 6.9-10.8 fL Neutrophils (%) (Auto) 71.3 75.0 37.0-80.0 % Lymphocytes (%) (Auto) 13.6 10.8 10.0-50.0 % Monocytes (%) (Auto) 12.1 H 11.4 0.0-12.0 % Eosinophils (%) (Auto) 1.9 1.9 0.0-7.0 % Basophils (%) (Auto) 1.1 0.9 0.0-2.0 % Neutrophils # (Auto) 6.6 7.6 1.6-8.6 10 ^3/uL Lymphocytes # (Auto) 1.3 1.1 0.4-5.4 10 ^3/uL Monocytes # (Auto) 1.1 1.2 0-1.3 10 ^3/uL Eosinophils # (Auto) 0.2 0.2 0-0.8 10 ^3/uL Basophils # (Auto) 0.1 0.1 0-0.2 10 ^3/uL Nucleated Red Blood Cells 0.0 0.0 % Prothrombin Time 11.1 9.3-11.8 sec Prothrombin Time INR 1.05 0.9-1.15 Activated Partial Thromboplast Time 27.4 24.5-34.5 SEC Lactic Acid Level 0.9 1.1 0.4-2.0 mmol/L Troponin I High Sensitivity 119 *H 119 *H 109 *H </=54 ng/L Triglycerides Level 135 < 150 mg/dL Cholesterol Level 95 < 200 mg/dL LDL Cholesterol 40 < 100 mg/dL HDL Cholesterol 33 L 40-59 mg/dL Sodium Level 137 136-145 mmol/L Potassium Level 3.5 3.5-5.1 mmol/L Chloride Level 99 98-107 mmol/L Carbon Dioxide Level 29 20-31 mmol/L Anion Gap 9 5-15 Blood Urea Nitrogen 24 H 9-23 mg/dL Creatinine 2.88 H 0.700-1.30 mg/dL Glomerular Filtration Rate Calc 23 >90 mL/min BUN/Creatinine Ratio 8.3 L 10.0-20.0 Serum Glucose 271 #H 74-106 mg/dL Calcium Level 8.2 L 8.7-10.4 mg/dL Total Bilirubin < 0.2 L 0.2-1.0 mg/dL Aspartate Amino Transferase (AST) 20 13-40 U/L Alanine Aminotransferase (ALT) < 9 7-40 U/L Alkaline Phosphatase 93 46-116 U/L Total Protein 6.9 5.7-8.2 g/dL Albumin 3.9 3.2-4.8 g/dL Lipase 73 H 12-53 U/L Assessment End-stage renal disease on hemodialysis, last hemodialysis 10/04 Gram-positive bacteremia Diabetes mellitus type 2 Hypertension Anemia of chronic kidney disease Recommendations Next Hemodialysis 10/07 Epogen [id number] subQ 3 times weekly Resume home medication Insulin sliding scale Blood pressure control Renal diet ID consult We will continue to follow Patient seen and examined ER bed seven. I discussed my plan of care with the patient and primary nurse at the bedside I would like to thank Yolande for the consult, will follow up Plan discussed with: Patient HARVEY DILLARD MD October 05, 2024 11:45
[2024-10-05 17:36] LABS: INR 1.07 (0.9-1.15); Partial Thromboplastin Time 39.3 SEC (24.5-34.5); Prothrombin Time 11.3 sec (9.3-11.8)
[2024-10-05 19:20] VITALS: PULSE 58; RESP 17; O2SAT 99
[2024-10-05] MEDS ORDERED: cloNIDine HCL 0.1 MG TAB PO PRN (21:00)
[2024-10-05] MEDS ORDERED: metFORMIN HYDROCHLORIDE 850 MG TAB PO SCH (22:00)
[2024-10-05] MEDS: ATORVASTATIN 20 MG TAB PO SCH (22:02)
[2024-10-05 22:09] VITALS: PULSE 76; RESP 18; O2SAT 99
[2024-10-06] VITALS (8 sets, daily range): BP systolic 123–184; BP diastolic 61–86; PULSE 53–65; RESP 16–19; TEMP 96.7–98.6; O2SAT 96–99
[2024-10-06 00:50] LABS: INR 1.07 (0.9-1.15); Partial Thromboplastin Time 45.8 SEC (24.5-34.5); Prothrombin Time 11.3 sec (9.3-11.8)
[2024-10-06] MEDS: HEPARIN DRIP/D5W 100UNITS/ML 250 ML IV SCH ×2 (01:10→14:18)
--- NOTE | 2024-10-06 01:54 | DVHSR ---
APPROVED REPORT EXAM: Two-dimensional and M-mode echocardiogram with Doppler and color Doppler. Blood Pressure: 221/82 mmHg INDICATION Elevated toponin levels RISK FACTORS Height: 5'5", Weight: 133 DIMENSIONS LVDd4.9 (3.8-5.7cm)LA (2D)4.9 (1.9-4.0cm)Aortic Root3.4 (2.0-3.7cm) LVDs3.2 (2.5-4.0cm)LA (MM) (1.9-4.0cm)Aortic Cusp Exc1.0 (1.5-2.0cm) EF (%) 60.0 (55-70%)Rt. Atrium4.7 (1.9-4.0cm)Asc. Aorta cm IVSd1.3 (0.7-1.1cm)RV (D)4.4 (1.8-2.4cm) PWd1.2 (0.7-1.1cm) Mitral Valve MitralMitral Stenosis E wave0.98m/sMV Mean GR.2mmHg A wave1.10m/sMV Peak GR.6mmHg E/A ratio0.92D MVAcm2 DECEL [id number] 1/2 [id number] IVRTmsDop MVA1.48cm2 Aortic Valve Aortic ValveAortic Stenosis V11.38m/Shanice Mean GR.10mmHg V22.34m/Shanice Peak GR.22mmHg LVOT Diameter2.4 (1.8-2.4cm)Doppler AVA2.67cm2 AI P 1/2 Fpiu472.69ms Pulmonic Valve V21.12m/s Tricuspid Valve TR Velocity2.69m/s [id number] Conclusion MILD LVH AND MILD LV DIASTOLIC DYSFUNCTION MODERATELT DILATED LA LV EF IS 65% ECHOGENIC MOBILE MASS IN RIGHT ATRIUM , SIZE APPROXIMATELY TWO CM AND IS GLOBULAR MOST LIKELY THROMBUS AND IS NOT ATTACHED TO TRICUSPID VALVE NO EFFUSION NORMAL APPEARANCE OF VALVES MODERATE DEGREE AORTIC REGURG
[2024-10-06 06:24] LABS: Basophils # (auto) 0.1 10 ^3/uL (0-0.2); Neutrophils # (auto) 5.6 10 ^3/uL (1.6-8.6); White Blood Cell 8.1 10^3/uL (4.4-10.8)
[2024-10-06 06:28] LABS: Basophils % (auto) 0.9 % (0.0-2.0); Eosinophils # (auto) 0.3 10 ^3/uL (0-0.8); Eosinophils % (auto) 3.2 % (0.0-7.0); Hematocrit 27.9 % (41.0-53.0); Hemoglobin 9.4 g/dL (13.5-17.5); Lymphocytes # (auto) 1.3 10 ^3/uL (0.4-5.4); Lymphocytes % (auto) 16.2 % (10.0-50.0); Mean Corpuscular Hemoglobin 27.1 pg (28.0-32.0); Mean Corpuscular Hgb Conc. 33.5 g/dL (32.0-36.0); Mean Corpuscular Volume 80.8 fL (80.0-100.0); Monocytes # (auto) 0.9 10 ^3/uL (0-1.3); Neutrophils % (auto) 68.7 % (37.0-80.0); Nucleated Red Blood Cells % 0.1 %; Platelet Count (auto) 253 10^3/uL (140-450); Red Blood Cells 3.45 10^6/uL (4.5-5.90)
[2024-10-06 06:34] LABS: Chloride 100 mmol/L (98-107); Sodium 136 mmol/L (136-145)
[2024-10-06 06:35] LABS: Anion Gap 9 (5-15); Carbon Dioxide 27 mmol/L (20-31)
[2024-10-06 06:41] LABS: BUN/Creatinine Ratio 9.3 (10.0-20.0)
[2024-10-06 06:50] LABS: Blood Urea Nitrogen 39 mg/dL (9-23); Calcium 8.5 mg/dL (8.7-10.4); Glucose 379 mg/dL (74-106)
[2024-10-06 07:30] LABS: INR 1.08 (0.9-1.15); Partial Thromboplastin Time 62.8 SEC (24.5-34.5); Prothrombin Time 11.4 sec (9.3-11.8)
[2024-10-06] MEDS: ASPirin-EC 81 mg tab PO SCH (08:49)
[2024-10-06] MEDS: NIFEdipine 10 MG CAP PO SCH (08:50)
[2024-10-06] MEDS: LOSARTAN POTASSIUM 50 MG TAB PO SCH (08:51)
[2024-10-06] MEDS ORDERED: FERR325T24 PO (08:55)
[2024-10-06] MEDS ORDERED: FURO20TA3 PO (08:56)
[2024-10-06] MEDS ORDERED: CARV6.2551 PO (08:57)
--- NOTE | 2024-10-06 09:22 | DVHPN2 ---
Progress Note Date Seen: October 06, 2024 Medical Necessity Reason Pt with a Central, PICC or Fol: No Subjective Patient reports: No new complaints Other Systems: Patient seen and examined by myself today in follow-up Objective vital signs Vital Sign Date Time Temp Pulse Resp B/P (MAP) Pulse Ox O2 Delivery O2 Flow Rate FiO2 10/06/24 08:51 191/72 10/06/24 08:51 55 10/06/24 05:00 96.7 18 96 96.7 10/05/24 22:09 Nasal Cannula* 2 28 Total Intake and Output 10/05/24 10/05/24 10/06/24 15:00 23:00 07:00 Intake Total 201 ml 94 ml 700 ml Balance 201 ml 94 ml 700 ml medications Current Medications Medications Dose Ordered Sig/David Route Start Time Stop Time Status Last Admin Dose Admin Vancomycin HCl 0 ml @ 0 mls/hr UD IV 10/04/24 21:45 Nitroglycerin 0.4 mg Q5MINP PRN SL 10/05/24 02:15 Morphine Sulfate 2 mg Q30M PRN IV 10/05/24 02:15 Ceftriaxone Sodium 50 ml @ 100 mls/hr DAILY IV 10/05/24 02:15 10/06/24 08:48 100 MLS/HR Ondansetron HCl 4 mg Q6HP PRN IV 10/05/24 02:15 Pantoprazole Sodium 40 mg DAILY IV 10/05/24 10:00 10/06/24 08:49 40 MG Acetaminophen 650 mg Q6HPRN PRN PO 10/05/24 02:15 Acetaminophen/ Hydrocodone Bitart 1 tab Q6HPRN PRN PO 10/05/24 02:15 Hydralazine HCl 10 mg Q6HPRN PRN PO 10/05/24 02:15 Cancel Atorvastatin Calcium 40 mg HS PO 10/05/24 22:00 10/05/24 22:02 40 MG Amlodipine Besylate 10 mg DAILY PO 10/05/24 10:00 10/06/24 08:50 10 MG Hydralazine HCl 50 mg Q8HR PO 10/05/24 06:00 10/06/24 06:10 50 MG Metoprolol Tartrate 12.5 mg BID PO 10/05/24 10:00 10/05/24 22:02 12.5 MG Sevelamer HCl 800 mg TIDWM PO 10/05/24 08:00 10/06/24 08:49 800 MG Diagnostic Test (Pha) 1 strip ACHS 10/05/24 07:00 10/06/24 06:10 1 STRIP Insulin Human Regular ACHS SC 10/05/24 07:00 10/06/24 06:11 10 UNITS Dextrose 50 ml UD PRN IV 10/05/24 03:00 Clonidine HCl 0.1 mg Q8HPRN PRN PO 10/05/24 03:00 10/05/24 06:01 0.1 MG Hydralazine HCl 10 mg Q6HP PRN IV 10/05/24 03:00 10/05/24 18:35 10 MG Nicardipine HCl 250 ml @ 50 mls/hr Q5H IV 10/05/24 07:15 10/05/24 12:22 50 MLS/HR Aspirin 81 mg DAILY PO 10/06/24 10:00 10/06/24 08:49 81 MG Glyburide 10 mg DAILY PO 10/06/24 10:00 Losartan Potassium 50 mg DAILY PO 10/06/24 10:00 10/06/24 08:51 50 MG Metformin HCl 850 mg TID PO 10/05/24 22:00 UNV Nifedipine 90 mg DAILY PO 10/06/24 10:00 Heparin Sodium/ Dextrose 250 ml @ 14 mls/hr [id number] IV 10/06/24 01:15 10/06/24 01:10 14 MLS/HR Examination: LUNGS:Normal, CVS:Normal, MSK:Normal laboratory and microbiology Laboratory Tests 10/06/24 05:33 Test 10/06/24 05:33 Range/Units Serum Glucose 379 H 74-106 mg/dL Microbiology Date/Time Source Procedure Growth Status 10/04/24 21:51 Blood Blood Culture - Preliminary NO GROWTH AFTER 24 HOURS OF INCUBATION. Resulted Problem List/Assessment/Plan Problem List/Assessment/Plan End-stage renal disease on hemodialysis, last hemodialysis 10/04 Gram-positive bacteremia Diabetes mellitus type 2 Hypertension Anemia of chronic kidney disease Recommendations Hemodialysis tomorrow Epogen 73237 subQ 3 times weekly Resume home medication Insulin sliding scale Blood pressure control Repeat blood culture Renal diet ID consult We will continue to follow Plan discussed with: Patient My Orders My Orders Orders - HARVEY DILLARD MD Procedure Category Date Status Time Vitamin D, 25-Hydroxy LAB 10/05/24 In Process 10:48 HARVEY DILLARD MD October 06, 2024 09:22
--- NOTE | 2024-10-06 09:43 | DVHPN2 ---
Progress Note - Dictate Date Seen: October 06, 2024 Medical Necessity Reason Pt with a Central, PICC or Fol: No Subjective no new complaints vital signs Vital Sign Date Time Temp Pulse Resp B/P (MAP) Pulse Ox O2 Delivery O2 Flow Rate FiO2 10/06/24 08:51 191/72 10/06/24 08:51 55 10/06/24 08:00 16 Nasal Cannula* 2 28 10/06/24 05:00 96.7 96 96.7 Total Intake and Output 10/05/24 10/05/24 10/06/24 15:00 23:00 07:00 Intake Total 201 ml 94 ml 700 ml Balance 201 ml 94 ml 700 ml medications Current Medications Medications Dose Ordered Sig/David Route Start Time Stop Time Status Last Admin Dose Admin Vancomycin HCl 0 ml @ 0 mls/hr UD IV 10/04/24 21:45 Nitroglycerin 0.4 mg Q5MINP PRN SL 10/05/24 02:15 Morphine Sulfate 2 mg Q30M PRN IV 10/05/24 02:15 Ceftriaxone Sodium 50 ml @ 100 mls/hr DAILY IV 10/05/24 02:15 10/06/24 08:48 100 MLS/HR Ondansetron HCl 4 mg Q6HP PRN IV 10/05/24 02:15 Pantoprazole Sodium 40 mg DAILY IV 10/05/24 10:00 10/06/24 08:49 40 MG Acetaminophen 650 mg Q6HPRN PRN PO 10/05/24 02:15 Acetaminophen/ Hydrocodone Bitart 1 tab Q6HPRN PRN PO 10/05/24 02:15 Hydralazine HCl 10 mg Q6HPRN PRN PO 10/05/24 02:15 Cancel Atorvastatin Calcium 40 mg HS PO 10/05/24 22:00 10/05/24 22:02 40 MG Amlodipine Besylate 10 mg DAILY PO 10/05/24 10:00 10/06/24 08:50 10 MG Hydralazine HCl 50 mg Q8HR PO 10/05/24 06:00 10/06/24 06:10 50 MG Metoprolol Tartrate 12.5 mg BID PO 10/05/24 10:00 10/05/24 22:02 12.5 MG Sevelamer HCl 800 mg TIDWM PO 10/05/24 08:00 10/06/24 08:49 800 MG Diagnostic Test (Pha) 1 strip ACHS 10/05/24 07:00 10/06/24 06:10 1 STRIP Insulin Human Regular ACHS SC 10/05/24 07:00 10/06/24 06:11 10 UNITS Dextrose 50 ml UD PRN IV 10/05/24 03:00 Clonidine HCl 0.1 mg Q8HPRN PRN PO 10/05/24 03:00 10/05/24 06:01 0.1 MG Hydralazine HCl 10 mg Q6HP PRN IV 10/05/24 03:00 10/05/24 18:35 10 MG Nicardipine HCl 250 ml @ 50 mls/hr Q5H IV 10/05/24 07:15 10/05/24 12:22 50 MLS/HR Aspirin 81 mg DAILY PO 10/06/24 10:00 10/06/24 08:49 81 MG Glyburide 10 mg DAILY PO 10/06/24 10:00 Losartan Potassium 50 mg DAILY PO 10/06/24 10:00 10/06/24 08:51 50 MG Metformin HCl 850 mg TID PO 10/05/24 22:00 UNV Nifedipine 90 mg DAILY PO 10/06/24 10:00 Heparin Sodium/ Dextrose 250 ml @ 14 mls/hr [id number] IV 10/06/24 01:15 10/06/24 01:10 14 MLS/HR objective General alert and oriented HEENT: Atraumatic Neck: No swelling Lungs: Equal air entry and clear to auscultation Cardiovascular: S2 heard no murmur Abdomen: Soft nontender, no organomegaly, nondistended Neuro: Alert and oriented, no focal deficit Psych: Normal mood and affect laboratory and microbiology Laboratory Tests 10/06/24 05:33 Test 10/06/24 05:33 Range/Units Serum Glucose 379 H 74-106 mg/dL Assessment/Plan A 65-year-old male Bacteremia due to GPC End-stage renal disease on hemodialysis Diabetes Recommendations Request outside records for bacteremia Here blood cultures are sent, follow We will empirically cover with IV vancomycin and IV ceftriaxone, monitor for toxicity Follow random vanco level random level 20 Chest x-ray reviewed personally, no infiltrate Plan discussed with Dr. Carreno Total of 50 minutes spent during the encounter, reviewing records, formulating plan and discussion Thank you for consultation Plan discussed with: RIVKA Alberto MD October 06, 2024 09:43
[2024-10-06] MEDS ORDERED: ATORVASTATIN 20 MG TAB PO SCH (10:00)
[2024-10-06] MEDS: glyBURIDE 5 MG TAB PO SCH (12:09)
[2024-10-06 13:25] LABS: INR 1.06 (0.9-1.15); Prothrombin Time 11.2 sec (9.3-11.8)
[2024-10-06 13:28] LABS: Partial Thromboplastin Time 84.3 SEC (24.5-34.5)
--- NOTE | 2024-10-06 14:17 | CONS ---
Pharmacy Clinical Information: HEPARIN DRIP PER RX aPTT = 84.3 OLD RATE 1400 UNITS/HR (14 ML/HR) NEW RATE: DECREASE 200 UNITS/HR TO 1200 UNITS/HR (12 ML/HR) NEXT aPTT @1999 COMMUNICATED WITH NELSY HAYES PHARMACIST October 06, 2024 14:17
--- NOTE | 2024-10-06 14:52 | DVHPN2 ---
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 Patient denies any fevers chills. 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 Medications Current Medications Medications Dose Ordered Sig/David Route Start Time Stop Time Status Last Admin Dose Admin Vancomycin HCl 0 ml @ 0 mls/hr UD IV 10/04/24 21:45 Nitroglycerin 0.4 mg Q5MINP PRN SL 10/05/24 02:15 Morphine Sulfate 2 mg Q30M PRN IV 10/05/24 02:15 Ceftriaxone Sodium 50 ml @ 100 mls/hr DAILY IV 10/05/24 02:15 10/06/24 08:48 100 MLS/HR Ondansetron HCl 4 mg Q6HP PRN IV 10/05/24 02:15 Pantoprazole Sodium 40 mg DAILY IV 10/05/24 10:00 10/06/24 08:49 40 MG Acetaminophen 650 mg Q6HPRN PRN PO 10/05/24 02:15 Acetaminophen/ Hydrocodone Bitart 1 tab Q6HPRN PRN PO 10/05/24 02:15 Hydralazine HCl 10 mg Q6HPRN PRN PO 10/05/24 02:15 Cancel Atorvastatin Calcium 40 mg HS PO 10/05/24 22:00 10/05/24 22:02 40 MG Amlodipine Besylate 10 mg DAILY PO 10/05/24 10:00 10/06/24 08:50 10 MG Hydralazine HCl 50 mg Q8HR PO 10/05/24 06:00 10/06/24 14:14 50 MG Metoprolol Tartrate 12.5 mg BID PO 10/05/24 10:00 10/05/24 22:02 12.5 MG Sevelamer HCl 800 mg TIDWM PO 10/05/24 08:00 10/06/24 12:06 800 MG Diagnostic Test (Pha) 1 strip ACHS 10/05/24 07:00 10/06/24 11:30 1 STRIP Insulin Human Regular ACHS SC 10/05/24 07:00 10/06/24 12:17 4 UNITS Dextrose 50 ml UD PRN IV 10/05/24 03:00 Clonidine HCl 0.1 mg Q8HPRN PRN PO 10/05/24 03:00 10/05/24 06:01 0.1 MG Hydralazine HCl 10 mg Q6HP PRN IV 10/05/24 03:00 10/05/24 18:35 10 MG Aspirin 81 mg DAILY PO 10/06/24 10:00 10/06/24 08:49 81 MG Glyburide 10 mg DAILY PO 10/06/24 10:00 10/06/24 12:09 10 MG Losartan Potassium 50 mg DAILY PO 10/06/24 10:00 10/06/24 08:51 50 MG Nifedipine 90 mg DAILY PO 10/06/24 10:00 Heparin Sodium/ Dextrose 250 ml @ 12 mls/hr [id number] IV 10/06/24 14:15 10/06/24 14:18 12 MLS/HR Laboratory Results Laboratory Tests 10/06/24 05:33 Chemistry Test 10/06/24 05:33 Calcium Level 8.5 mg/dL (8.7-10.4) L Coagulation Test 10/05/24 17:04 10/06/24 00:23 10/06/24 07:01 10/06/24 12:40 Prothrombin Time 11.3 sec (9.3-11.8) 11.3 sec (9.3-11.8) 11.4 sec (9.3-11.8) 11.2 sec (9.3-11.8) Prothrombin Time INR 1.07 (0.9-1.15) 1.07 (0.9-1.15) 1.08 (0.9-1.15) 1.06 (0.9-1.15) Activated Partial Thromboplast Time 39.3 SEC (24.5-34.5) H 45.8 SEC (24.5-34.5) H 62.8 SEC (24.5-34.5) H 84.3 SEC (24.5-34.5) *H Urinalysis Test 10/05/24 04:17 Urine Color Yellow (Yellow) Urine Clarity Turbid (Clear) H Urine pH 6.0 (5.0-9.0) Urine Specific [place] 1.020 (1.001-1.035) Urine Protein 3+ (Negative) H Urine Ketones Negative (Negative) Urine Blood Negative /uL (Negative) Urine Nitrite Negative (Negative) Urine Bilirubin Negative (Negative) Urine Urobilinogen Normal mg/dL (Negative) Urine Leukocyte Esterase Negative /uL (Negative) Urine RBC 1 /hpf (0 - 3) Urine Microscopic WBC 10 /HPF (0-3) H Urine Squamous Epithelial Cells Few /hpf (<5) Urine Bacteria None seen /hpf (None Seen) Urine Yeast (Budding) Occasional /hpf (None Urine Glucose 4+ mg/dL (Normal) H Microbiology Microbiology Date/Time Source Procedure Growth Status 10/06/24 00:08 Nose MRSA Screen - Final Complete 10/04/24 21:51 Blood Blood Culture - Preliminary NO GROWTH AFTER 24 HOURS OF INCUBATION. Resulted Assessment/Plan Assessment/Plan This is a 69 yo male with known history of ESRD on HD, DM type 2 who presents with positive blood cultures sent from HD clinic to ED. 1. Gram-positive bacteremia 2. End-stage renal disease on hemodialysis 3. Elevated troponin suspect secondary to decreased renal clearance 4. Diabetes mellitus type 2 5. Hypertension 6. Chronic respiratory failure on home O2 -repeat blood cultures, IV antibiotics, follow up Nephrology and Infectious Disease recommendations. Plan discussed with: Patient Date of Service: October 06, 2024 Billing Provider: SUKUMAR PEDRO MD Common Visit Codes: NOT BILLABLE SUKUMAR PEDRO MD October 06, 2024 14:52
[2024-10-06 20:15] LABS: INR 1.03 (0.9-1.15); Partial Thromboplastin Time 68.5 SEC (24.5-34.5); Prothrombin Time 10.9 sec (9.3-11.8)
[2024-10-07] VITALS (7 sets, daily range): BP systolic 165–188; BP diastolic 57–61; PULSE 54–59; RESP 16–17; TEMP 36.7; O2SAT 96–99
[2024-10-07 02:21] LABS: INR 1.04 (0.9-1.15); Partial Thromboplastin Time 66.1 SEC (24.5-34.5)
[2024-10-07 06:17] LABS: Basophils # (auto) 0.1 10 ^3/uL (0-0.2); Eosinophils # (auto) 0.2 10 ^3/uL (0-0.8); Eosinophils % (auto) 2.2 % (0.0-7.0); Hematocrit 28.6 % (41.0-53.0); Hemoglobin 9.5 g/dL (13.5-17.5); Lymphocytes # (auto) 0.6 10 ^3/uL (0.4-5.4); Lymphocytes % (auto) 6.5 % (10.0-50.0); Mean Corpuscular Hemoglobin 26.9 pg (28.0-32.0); Mean Corpuscular Hgb Conc. 33.3 g/dL (32.0-36.0); Mean Corpuscular Volume 80.7 fL (80.0-100.0); Monocytes # (auto) 0.8 10 ^3/uL (0-1.3); Monocytes % (auto) 8.4 % (0.0-12.0); Neutrophils # (auto) 8.1 10 ^3/uL (1.6-8.6); Neutrophils % (auto) 81.9 % (37.0-80.0); Platelet Count (auto) 261 10^3/uL (140-450); Red Blood Cells 3.54 10^6/uL (4.5-5.90); Red Cell Distribution Width 15.5 % (11.8-14.3); White Blood Cell 9.9 10^3/uL (4.4-10.8)
[2024-10-07 06:26] LABS: Chloride 102 mmol/L (98-107); Potassium 3.6 mmol/L (3.5-5.1); Sodium 138 mmol/L (136-145)
[2024-10-07 06:27] LABS: Anion Gap 10 (5-15); Carbon Dioxide 26 mmol/L (20-31)
[2024-10-07 06:32] LABS: BUN/Creatinine Ratio 10.6 (10.0-20.0)
[2024-10-07 06:33] LABS: Blood Urea Nitrogen 47 mg/dL (9-23); Glucose 118 mg/dL (74-106)
[2024-10-07] MEDS ORDERED: SODIUM CHL 0.9% 1000 ML BAG XX ONE (07:00)
[2024-10-07 09:58] LABS: INR 1.08 (0.9-1.15); Prothrombin Time 11.4 sec (9.3-11.8)
[2024-10-07 10:16] LABS: Partial Thromboplastin Time 75.7 SEC (24.5-34.5)
--- NOTE | 2024-10-07 11:03 | CONS ---
Pharmacy Clinical Information: HEPARIN DRIP PER RX PROTOCOL aPTT = 75.7 CONTINUE SAME RATE @ 1200 UNITS/HR (12ML/HR) NEXT aPTT 10/07 @1400 COMMUNICATED WITH NELSY COOPER PHARMACIST October 07, 2024 11:03
--- NOTE | 2024-10-07 12:35 | DVHPN2 ---
Progress Note - Dictate Date Seen: October 07, 2024 Medical Necessity Reason Pt with a Central, PICC or Fol: No Subjective no new complaints vital signs Vital Sign Date Time Temp Pulse Resp B/P (MAP) Pulse Ox O2 Delivery O2 Flow Rate FiO2 10/07/24 11:28 150/72 10/07/24 10:00 57 10/07/24 08:30 97.6 16 97 97.6 10/07/24 07:55 Nasal Cannula* 2 28 Total Intake and Output 10/06/24 10/06/24 10/07/24 15:00 23:00 07:00 Intake Total 50 ml 998 ml 500 ml Output Total 1200 ml 600 ml Balance 50 ml -202 ml -100 ml medications Current Medications Medications Dose Ordered Sig/David Route Start Time Stop Time Status Last Admin Dose Admin Vancomycin HCl 0 ml @ 0 mls/hr UD IV 10/04/24 21:45 Nitroglycerin 0.4 mg Q5MINP PRN SL 10/05/24 02:15 Morphine Sulfate 2 mg Q30M PRN IV 10/05/24 02:15 Ceftriaxone Sodium 50 ml @ 100 mls/hr DAILY IV 10/05/24 02:15 10/07/24 11:27 100 MLS/HR Ondansetron HCl 4 mg Q6HP PRN IV 10/05/24 02:15 Pantoprazole Sodium 40 mg DAILY IV 10/05/24 10:00 10/07/24 08:28 40 MG Acetaminophen 650 mg Q6HPRN PRN PO 10/05/24 02:15 Acetaminophen/ Hydrocodone Bitart 1 tab Q6HPRN PRN PO 10/05/24 02:15 Hydralazine HCl 10 mg Q6HPRN PRN PO 10/05/24 02:15 Cancel Atorvastatin Calcium 40 mg HS PO 10/05/24 22:00 10/06/24 22:13 40 MG Amlodipine Besylate 10 mg DAILY PO 10/05/24 10:00 10/07/24 11:28 10 MG Hydralazine HCl 50 mg Q8HR PO 10/05/24 06:00 10/07/24 06:05 50 MG Metoprolol Tartrate 12.5 mg BID PO 10/05/24 10:00 10/06/24 22:13 12.5 MG Sevelamer HCl 800 mg TIDWM PO 10/05/24 08:00 10/07/24 12:17 800 MG Diagnostic Test (Pha) 1 strip ACHS 10/05/24 07:00 10/07/24 11:35 1 STRIP Insulin Human Regular ACHS SC 10/05/24 07:00 10/07/24 12:20 4 UNITS Dextrose 50 ml UD PRN IV 10/05/24 03:00 Clonidine HCl 0.1 mg Q8HPRN PRN PO 10/05/24 03:00 10/07/24 05:31 0.1 MG Hydralazine HCl 10 mg Q6HP PRN IV 10/05/24 03:00 10/07/24 01:26 10 MG Aspirin 81 mg DAILY PO 10/06/24 10:00 10/07/24 08:26 81 MG Glyburide 10 mg DAILY PO 10/06/24 10:00 10/07/24 08:27 10 MG Losartan Potassium 50 mg DAILY PO 10/06/24 10:00 10/07/24 11:27 50 MG Nifedipine 90 mg DAILY PO 10/06/24 10:00 Heparin Sodium/ Dextrose 250 ml @ 12 mls/hr [id number] IV 10/06/24 14:15 10/07/24 11:35 12 MLS/HR objective General alert and oriented HEENT: Atraumatic Neck: No swelling Lungs: Equal air entry and clear to auscultation Cardiovascular: S2 heard no murmur Abdomen: Soft nontender, no organomegaly, nondistended Neuro: Alert and oriented, no focal deficit Psych: Normal mood and affect laboratory and microbiology Laboratory Tests 10/07/24 05:51 Test 10/07/24 05:51 Range/Units Serum Glucose 118 #H 74-106 mg/dL Assessment/Plan A 65-year-old male Bacteremia due to staphylococcus coag negative End-stage renal disease on hemodialysis Diabetes 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 Carreno/ Dr Bertha Jessica ( nephro) Total of 50 minutes spent during the encounter, reviewing records, formulating plan and discussion Thank you for consultation Plan discussed with: Patient, Other RIVKA FARAH MD October 07, 2024 12:35
--- NOTE | 2024-10-07 13:09 | ECG ---
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
[2024-10-07 15:13] LABS: INR 1.03 (0.9-1.15); Prothrombin Time 10.9 sec (9.3-11.8)
[2024-10-07] MEDS: HEPARIN DRIP/D5W 100UNITS/ML 250 ML IV SCH (15:45)
--- NOTE | 2024-10-07 15:45 | CONS ---
Pharmacy Clinical Information: HEPARIN DRIP PER RX aPTT = 78 OLD RATE 1200 UNITS/HR (12ML/HR) NEW RATE: DECREASE BY 200 UNITS/HR TO 1000 UNITS/HR (10 ML/HR) NEXT aPTT FOR 10/07 @2200 COMMUNICATED WITH NELSY COOPER PHARMACIST October 07, 2024 15:45
--- NOTE | 2024-10-07 15:47 | DVHPN2 ---
Progress Note Date Seen: October 07, 2024 Medical Necessity Reason Pt with a Central, PICC or Fol: No Subjective Patient reports: No new complaints, Feels better Review of Systems: HEENT:Normal, CVS:Normal, RESPIRATORY:Normal, GI:Normal, :Normal, MSK:Normal, NEURO:Normal Objective vital signs Vital Sign Date Time Temp Pulse Resp B/P (MAP) Pulse Ox O2 Delivery O2 Flow Rate FiO2 10/07/24 12:58 169/59 10/07/24 12:55 98.0 58 16 99 98.0 10/07/24 07:55 Nasal Cannula* 2 28 Total Intake and Output 10/06/24 10/06/24 10/07/24 15:00 23:00 07:00 Intake Total 50 ml 998 ml 500 ml Output Total 1200 ml 600 ml Balance 50 ml -202 ml -100 ml medications Current Medications Medications Dose Ordered Sig/David Route Start Time Stop Time Status Last Admin Dose Admin Vancomycin HCl 0 ml @ 0 mls/hr UD IV 10/04/24 21:45 Nitroglycerin 0.4 mg Q5MINP PRN SL 10/05/24 02:15 Morphine Sulfate 2 mg Q30M PRN IV 10/05/24 02:15 Ceftriaxone Sodium 50 ml @ 100 mls/hr DAILY IV 10/05/24 02:15 10/07/24 11:27 100 MLS/HR Ondansetron HCl 4 mg Q6HP PRN IV 10/05/24 02:15 Pantoprazole Sodium 40 mg DAILY IV 10/05/24 10:00 10/07/24 08:28 40 MG Acetaminophen 650 mg Q6HPRN PRN PO 10/05/24 02:15 Acetaminophen/ Hydrocodone Bitart 1 tab Q6HPRN PRN PO 10/05/24 02:15 Hydralazine HCl 10 mg Q6HPRN PRN PO 10/05/24 02:15 Cancel Atorvastatin Calcium 40 mg HS PO 10/05/24 22:00 10/06/24 22:13 40 MG Amlodipine Besylate 10 mg DAILY PO 10/05/24 10:00 10/07/24 11:28 10 MG Hydralazine HCl 50 mg Q8HR PO 10/05/24 06:00 10/07/24 12:58 50 MG Metoprolol Tartrate 12.5 mg BID PO 10/05/24 10:00 10/06/24 22:13 12.5 MG Sevelamer HCl 800 mg TIDWM PO 10/05/24 08:00 10/07/24 12:17 800 MG Diagnostic Test (Pha) 1 strip ACHS 10/05/24 07:00 10/07/24 11:35 1 STRIP Insulin Human Regular ACHS SC 10/05/24 07:00 10/07/24 12:20 4 UNITS Dextrose 50 ml UD PRN IV 10/05/24 03:00 Clonidine HCl 0.1 mg Q8HPRN PRN PO 10/05/24 03:00 10/07/24 05:31 0.1 MG Hydralazine HCl 10 mg Q6HP PRN IV 10/05/24 03:00 10/07/24 01:26 10 MG Aspirin 81 mg DAILY PO 10/06/24 10:00 10/07/24 08:26 81 MG Glyburide 10 mg DAILY PO 10/06/24 10:00 10/07/24 08:27 10 MG Losartan Potassium 50 mg DAILY PO 10/06/24 10:00 10/07/24 11:27 50 MG Nifedipine 90 mg DAILY PO 10/06/24 10:00 Heparin Sodium/ Dextrose 250 ml @ 10 mls/hr Q24H IV 10/07/24 15:45 10/07/24 15:45 10 MLS/HR Examination: GENERAL:Normal, HEENT:Normal, NECK:Normal, LUNGS:Normal, CVS:Normal, ABDOMEN:Normal, MSK:Normal, SKIN:Normal, NEURO:Normal, :Normal laboratory and microbiology Laboratory Tests 10/07/24 05:51 Test 10/07/24 05:51 Range/Units Serum Glucose 118 #H 74-106 mg/dL Microbiology Date/Time Source Procedure Growth Status 10/06/24 00:08 Nose MRSA Screen - Final Complete 10/04/24 21:51 Blood Blood Culture - Preliminary NO GROWTH AFTER 48 HOURS OF INCUBATION. Resulted Problem List/Assessment/Plan Problem List/Assessment/Plan End-stage renal disease on hemodialysis, last hemodialysis 10/04 Gram-positive bacteremia Diabetes mellitus type 2 Hypertension Anemia of chronic kidney disease nstemi recs Hemo dialysis today Culture showing Gram-positive coagulase-negative staph Discussed with ID recommending vancomycin for three weeks Care management to arrange antibiotics at Dialysis Center Plan discussed with: Patient MARY MONTE MD October 07, 2024 15:47
--- NOTE | 2024-10-07 15:47 | DVHDS2 ---
Discharge Summary Date of Admission October 05, 2024 at 02:12 Date of Discharge: October 07, 2024 Labs/Diagnostic Data: Laboratory Results Test 10/07/24 14:20 10/07/24 11:33 10/07/24 05:51 10/05/24 22:03 Prothrombin Time 10.9 sec (9.3-11.8) Prothrombin Time INR 1.03 (0.9-1.15) Activated Partial Thromboplast Time 78.0 SEC (24.5-34.5) POC Glucose 235 mg/dl (70-106) White Blood Count 9.9 10^3/uL (4.4-10.8) Red Blood Count 3.54 10^6/uL (4.5-5.90) Hemoglobin 9.5 g/dL (13.5-17.5) Hematocrit 28.6 % (41.0-53.0) Mean Corpuscular Volume 80.7 fL (80.0-100.0) Mean Corpuscular Hemoglobin 26.9 pg (28.0-32.0) Mean Corpuscular Hemoglobin Concent 33.3 g/dL (32.0-36.0) Red Cell Distribution Width 15.5 % (11.8-14.3) Platelet Count 261 10^3/uL (140-450) Mean Platelet Volume 8.3 fL (6.9-10.8) Neutrophils (%) (Auto) 81.9 % (37.0-80.0) Lymphocytes (%) (Auto) 6.5 % (10.0-50.0) Monocytes (%) (Auto) 8.4 % (0.0-12.0) Eosinophils (%) (Auto) 2.2 % (0.0-7.0) Basophils (%) (Auto) 1.0 % (0.0-2.0) Neutrophils # (Auto) 8.1 10 ^3/uL (1.6-8.6) Lymphocytes # (Auto) 0.6 10 ^3/uL (0.4-5.4) Monocytes # (Auto) 0.8 10 ^3/uL (0-1.3) Eosinophils # (Auto) 0.2 10 ^3/uL (0-0.8) Basophils # (Auto) 0.1 10 ^3/uL (0-0.2) Nucleated Red Blood Cells 0.0 % Sodium Level 138 mmol/L (136-145) Potassium Level 3.6 mmol/L (3.5-5.1) Chloride Level 102 mmol/L (98-107) Carbon Dioxide Level 26 mmol/L (20-31) Anion Gap 10 (5-15) Blood Urea Nitrogen 47 mg/dL (9-23) Creatinine 4.44 mg/dL (0.700-1.30) Glomerular Filtration Rate Calc 14 mL/min (>90) BUN/Creatinine Ratio 10.6 (10.0-20.0) Serum Glucose 118 mg/dL (74-106) Calcium Level 8.0 mg/dL (8.7-10.4) Random Vancomycin Level 16.4 ug/mL (5-10) Hepatitis B Surface Antigen Negative (Negative) Troponin I High Sensitivity 111 ng/L (</=54) Test 10/05/24 05:52 10/05/24 04:17 10/05/24 02:34 10/05/24 00:19 Phosphorus Level 3.3 mg/dL (2.4-5.1) Magnesium Level 1.8 mg/dL (1.6-2.6) B-Type Natriuretic Peptide 29.74 pg/mL (0-100) Lipase 41 U/L (12-53) Vitamin D 25-Hydroxy 45.5 ng/mL (30.0-100) Parathyroid Hormone (Intact) 96.4 pg/mL (18.4-80.1) Urine Color Yellow (Yellow) Urine Clarity Turbid (Clear) Urine pH 6.0 (5.0-9.0) Urine Specific Aragon 1.020 (1.001-1.035) Urine Protein 3+ (Negative) Urine Ketones Negative (Negative) Urine Blood Negative /uL (Negative) Urine Nitrite Negative (Negative) Urine Bilirubin Negative (Negative) Urine Urobilinogen Normal mg/dL (Negative) Urine Leukocyte Esterase Negative /uL (Negative) Urine RBC 1 /hpf (0 - 3) Urine Microscopic WBC 10 /HPF (0-3) Urine Squamous Epithelial Cells Few /hpf (<5) Urine Bacteria None seen /hpf (None Seen) Urine Yeast (Budding) Occasional /hpf (None Urine Glucose 4+ mg/dL (Normal) Lactic Acid Level 0.9 mmol/L (0.4-2.0) Triglycerides Level 135 mg/dL (< 150) Cholesterol Level 95 mg/dL (< 200) LDL Cholesterol 40 mg/dL (< 100) HDL Cholesterol 33 mg/dL (40-59) Test 10/04/24 21:51 Total Bilirubin < 0.2 mg/dL (0.2-1.0) Aspartate Amino Transferase (AST) 20 U/L (13-40) Alanine Aminotransferase (ALT) < 9 U/L (7-40) Alkaline Phosphatase 93 U/L (46-116) Total Protein 6.9 g/dL (5.7-8.2) Albumin 3.9 g/dL (3.2-4.8) Other Laboratory Tests 10/07/24 05:51 Brief Hx & Hospital Course: This is a 69 yo male with known history of ESRD on HD, DM type 2 who presents with positive blood cultures sent from HD clinic to ED. the patient was eventually admitted started on IV antibiotics. Nephrology was consulted for dialysis. The patient was seen by infectious disease specialist recommended to be on 2 weeks of IV antibiotics on dialysis days. Patient being discharged under stable condition. Condition at Discharge: Stable Final Diagnosis/Problems List This is a 69 yo male with known history of ESRD on HD, DM type 2 who presents with positive blood cultures sent from HD clinic to ED. 1. Gram-positive bacteremia 2. End-stage renal disease on hemodialysis 3. Elevated troponin suspect secondary to decreased renal clearance 4. Diabetes mellitus type 2 5. Hypertension 6. Chronic respiratory failure on home O2 Discharge Disposition: Home with Health Services SNF Discharge Will this Physician continue t: No Discharge Instruct/Medications Diet: Cardiac 2g Na,low cholest Diet comment: 1800 ADA diet Activity: No Restrictions, As Tolerated Follow Up/Referral: Follow up with the PCP in 1 week Follow up with the hemodialysis center for dialysis as well as 2 weeks of IV antibiotics with dialysis . Follow up with infectious disease specialist Dr. Mcginnis in 1-2 weeks. Medications: Vancomycin 1 g IV after each dialysis for 2 weeks. Discharge Statement: "Patient was advised to return to the ER or call 911 if any headaches, dizziness, shortness of breath, chest pain, abdominal pain, bleeding, fevers, or worsening of medical condition. Patient was counseled about treatment plan, medications, possible side effects, patient�verbalized understanding. All questions were answered to the best of my ability. This discharge took greater then 30 minutes in planning, reviewing documentation, counseling the patient, and discussing with other team members." ASSESSMENT ASSESSMENT Assessment This is a 69 yo male with known history of ESRD on HD, DM type 2 who presents with positive blood cultures sent from HD clinic to ED. 1. Gram-positive bacteremia 2. End-stage renal disease on hemodialysis 3. Elevated troponin suspect secondary to decreased renal clearance 4. Diabetes mellitus type 2 5. Hypertension 6. Chronic respiratory failure on home O2 Date of Service: October 07, 2024 Billing Provider: SUKUMAR PEDRO MD Common Visit Codes: NOT BILLABLE SUKUMAR PEDRO MD October 07, 2024 15:47
[2024-10-07] MEDS ORDERED: VANCOMYCIN 500mg/100mL 100 ML IV ONE (18:37)
[2024-10-07] MEDS ORDERED: EPOETIN ALFA-EPBX 10,000 UNIT/1ML VIAL SC ONE (21:00)
== END 2024-10-07 19:10 | disposition home or self-care (01) | DRG 871 ==
LOC: ER 20:56 → OVERFLOW 10-05 02:12 → TELE-CENTR 10-05 23:11
PROVIDERS: ADMIT Nurse Practitioner Family; ATTEND Nurse Practitioner Family
PROC: 5A1D70Z Performance of Urinary Filtration, Intermittent, Less than 6 Hours Per Day (ICD-10-PCS; principal; 2024-10-07)
DX: R78.81 Bacteremia (principal); I21.A1 Myocardial infarction type 2; N18.6 End stage renal disease; J96.10 Chronic respiratory failure, unspecified whether with hypoxia or hypercapnia; I12.0 Hypertensive chronic kidney disease with stage 5 chronic kidney disease or end stage renal disease; D63.1 Anemia in chronic kidney disease; E11.22 Type 2 diabetes mellitus with diabetic chronic kidney disease; B95.8 Unspecified staphylococcus as the cause of diseases classified elsewhere; R74.8 Abnormal levels of other serum enzymes; R79.89 Other specified abnormal findings of blood chemistry; Z99.2 Dependence on renal dialysis; Z99.81 Dependence on supplemental oxygen; Z79.82 Long term (current) use of aspirin; Z79.84 Long term (current) use of oral hypoglycemic drugs; Z79.899 Other long term (current) drug therapy; Z82.49 Family history of ischemic heart disease and other diseases of the circulatory system
CPT/HCPCS: 36415; 71045; 80048; 80053; 80061; 80202; 81001; 82306; 82962; 83605; 83690; 83735; 83880; 83970; 84100; 84484; 85025; 85610; 85730; 87040; 87081; 87340; 90935; 93005; 93306; 96365; G0378; J1815; J2470

== ENCOUNTER → 2025-01-02 | Outpatient (CLI) | payer OTHER ==
[~2025-01-02] MED LIST changes: +APIX5TAB PO; +CARV6.2551 PO; +FERR325T24 PO; +FURO20TA3 PO; +INSLANTI SC; +LOSA-534 PO; +NIFE10CA52 PO; +SITA50TA PO
== END | disposition home or self-care (01) ==
LOC: LAB 14:15
PROVIDERS: ATTEND Surgery Vascular Surgery
DX: Z01.812 Encounter for preprocedural laboratory examination (principal); N18.6 End stage renal disease
CPT/HCPCS: 86850; 86900; 86901

== ENCOUNTER → 2025-01-06 | Day surgery (SDC) | payer OTHER ==
[~2025-01-06] VITALS: Ht 165.1 cm; Wt 59.0 kg
[~2025-01-06] MED LIST changes: -AML5T PO; -CLON0.1T PO; -EMPA1TAB3 PO; -GLYB5TAB8 PO; -MET25T PO; -METF-371 PO
[2025-01-06 08:31] VITALS: BP 144/70; PULSE 64; RESP 20; TEMP 97.8; O2SAT 96
[2025-01-06 10:34] LABS: Hematocrit 33.4 % (41.0-53.0); Hemoglobin 11.3 g/dL (13.5-17.5); Mean Corpuscular Hemoglobin 28.5 pg (28.0-32.0); Mean Corpuscular Volume 84.6 fL (80.0-100.0); Nucleated Red Blood Cells % 0.0 %
[2025-01-06 10:44] LABS: Chloride 105 mmol/L (98-107); Sodium 137 mmol/L (136-145)
[2025-01-06 10:45] LABS: Anion Gap 7 (5-15); Calcium 8.7 mg/dL (8.7-10.4); Carbon Dioxide 25 mmol/L (20-31)
[2025-01-06 10:49] LABS: INR 0.97 (0.9-1.15); Partial Thromboplastin Time 29.0 SEC (24.5-34.5); Prothrombin Time 10.3 sec (9.3-11.8)
[2025-01-06 10:50] LABS: BUN/Creatinine Ratio 10.1 (10.0-20.0)
[2025-01-06 10:55] LABS: Blood Urea Nitrogen 61 mg/dL (9-23); Glucose 190 mg/dL (74-106)
[2025-01-06 11:00] LABS: Potassium 5.7 mmol/L (3.5-5.1)
== END | disposition home or self-care (01) ==
LOC: SUR 07:32
PROVIDERS: ATTEND Surgery Vascular Surgery
DX: E11.22 Type 2 diabetes mellitus with diabetic chronic kidney disease (principal); Z53.8 Procedure and treatment not carried out for other reasons; N18.6 End stage renal disease; Z79.82 Long term (current) use of aspirin; Z79.4 Long term (current) use of insulin; Z79.899 Other long term (current) drug therapy; Z87.891 Personal history of nicotine dependence; Z98.890 Other specified postprocedural states; Z83.3 Family history of diabetes mellitus; Z82.49 Family history of ischemic heart disease and other diseases of the circulatory system
CPT/HCPCS: 36415; 80048; 82962; 85025; 85610; 85730; 86850; 86900; 86901

== ENCOUNTER → 2025-01-20 | Day surgery (SDC) | payer OTHER ==
[~2025-01-20] VITALS: Ht 165.1 cm; Wt 59.0 kg
[~2025-01-20] MED LIST changes: +BUPIVACAINE 0.25% INJ 50ML VIAL ONE; +ETOMIDATE (2MG/ML) 20ML VIAL IV ONE; +HEPARIN SODIUM (PORCINE) 5000 UNITS/ML 1ML VIAL ONE; +HYDROmorphone HCL 2 MG/ML VL/or syr IV PRN; +LIDOCAINE W/ EPINEPHRINE 1% 20ML VIAL ONE; +METOCLOPRAMIDE HCL 5MG/ml INJ 2ml VIAL ONE; +MIDAZOLAM HCL 2MG/2ML 2ml VIAL (1mg/ml) ONE; +ONDANSETRON HCL 4 MG/2 ML VIAL IV PRN; +ONDANSETRON HCL 4 MG/2 ML VIAL ONE; +PHENYLEPHRINE HCL 10 MG/ML VL ONE; +ceFAZolin 2 GM/D5W50ml 50 ML IV ONE; +fentaNYL CITRATE 100 MCG/2 ML VL ONE
[2025-01-20 08:24] LABS: Chloride 103 mmol/L (98-107); Hematocrit 33.7 % (41.0-53.0); Hemoglobin 11.2 g/dL (13.5-17.5); INR 0.95 (0.9-1.15); Mean Corpuscular Hemoglobin 28.1 pg (28.0-32.0); Mean Corpuscular Volume 84.5 fL (80.0-100.0); Nucleated Red Blood Cells % 0.0 %; Partial Thromboplastin Time 28.2 SEC (24.5-34.5); Potassium 4.5 mmol/L (3.5-5.1); Prothrombin Time 10.1 sec (9.3-11.8); Sodium 138 mmol/L (136-145)
[2025-01-20 08:26] LABS: BUN/Creatinine Ratio 10.0 (10.0-20.0); Blood Urea Nitrogen 50 mg/dL (9-23); Calcium 8.6 mg/dL (8.7-10.4); Glucose 210 mg/dL (74-106)
[2025-01-20 11:11] LABS: Anion Gap 11 (5-15); Carbon Dioxide 24 mmol/L (20-31)
[2025-01-20] MEDS: BUPIVACAINE 0.25% INJ 50ML VIAL ONE (12:15)
[2025-01-20] MEDS: LIDOCAINE 1% HCL (LOCAL ANESTH.) INJ 20ML MDV ONE (12:15)
[2025-01-20 12:31] VITALS: PULSE 69; RESP 16; TEMP 97.2; O2SAT 92
[2025-01-20 12:46] VITALS: PULSE 70; RESP 15; O2SAT 95
--- NOTE | 2025-01-20 13:07 | DVHOP2 ---
Operative Report - 2 Report Details Date: 01/20/25 Preop Diagnosis: End-stage renal disease Postop Diagnosis: Same Surgeon: Obi Valdez MD Anesthesiologist: General with regional block Anesthesia: General, Regional Consent: The patient was informed of the risks and benefits of the procedure. These include but are not limited to complications of anesthesia, postoperative infection, incomplete relief of symptoms, recurrence of symptoms, damage to blood vessels, nerves and tendons, deep venous thrombosis, pulmonary embolism and possible need for repeat surgery in the future. Name of Procedure Performed Left brachiocephalic arteriovenous fistula creation Procedure Details Procedure Details: Patient was identified in preop hold area. The patient was brought to the operating room placed the operating table in supine position after adequate induction of anesthesia antibiotics and time-out the left arm was prepped and draped in normal surgical fashion. Antecubital incision was made Bovie cauterization was for hemostasis dissection was taken down through the cephalic vein at the antecubital fossa there was a large branch which was ligated with 2- 0 silk sutures followed by dissection of the the cephalic vein the cephalic vein appeared to be adequate size for fistula creation. Was mobilized proximally and distally. It was ligated at the distal branching point. The fistula was flushed with heparinized saline and dilated to 4 mm without difficulty. Attention was then placed into the brachial artery brachial artery was then dissected out proximally and distally there was normal size artery with minimal arterial plaque. 3000 units of heparin was given to the patient proximal and distal control was obtained with vessel loops and then the brachial artery was clamped a 11 blade was used for an arteriotomy it was extended with the Ortiz scissors. The cephalic vein was then spatulated and then sewn to the brachial artery in end-to-side fashion with 6 0 Prolene suture. At the completion anastomosis all vessels were flushed with heparinized saline prior to completion. Vessel loops were removed flow was restored to the cephalic vein. There was a palpable brachial and radial artery pulse there was a good thrill in the fistula. This was confirmed with Doppler signals. The wound was irrigated out and then closed with a deep layer of 3-0 Vicryl suture followed by 4-0 Monocryl subcuticular suture followed by Dermabond. Sterile dressing was applied sponge and needle counts were correct patient was taken to PACU in stable condition. Condition Stable Disposition Still a Patient OBI VALDEZ Jr., MD Jan 20, 2025 13:07
[2025-01-20 13:45] VITALS: BP 144/61; PULSE 66; RESP 12; O2SAT 93
== END | disposition home or self-care (01) ==
LOC: SUR 06:43
PROVIDERS: ATTEND Surgery Vascular Surgery
DX: I12.9 Hypertensive chronic kidney disease with stage 1 through stage 4 chronic kidney disease, or unspecified chronic kidney disease (principal); N18.6 End stage renal disease
CPT/HCPCS: 36415; 36821; 80048; 82962; 85025; 85610; 85730; 86850; 86900; 86901; J0690; J1100; J1644; J2003; J2250; J2371; J2405; J2765; J3010; J3490